=== PATIENT | female | born 1960 | race Caucasian/White ===

== ENCOUNTER 2023-07-06 07:51 | Outpatient (OUT) | payer OTHER, SELFPAY ==
--- NOTE | 2023-07-06 07:56 | MM_ITS ---
Patient Name: MIGUEL ANGEL LOZA MR#: [id number] : 1960 Exam Date: 07/06/2023 Ordering Doctor: DR LESLY MOORE . RADIOLOGY REPORT PROCEDURE: MM TOMOSYNTHESIS SCREENING BI COMPARISON: MG MAMM SCREEN 3D RICARDO CAD, 07/02/2022. MG MAMM SCREEN 3D RICARDO CAD, 05/21/2021. INDICATIONS: Screening Calculator Name NCI Breast Cancer Risk Assessment Tool 5 Year Breast Cancer Risk 4.10% Lifetime Breast Cancer Risk 19.60% Personal Breast Cancer No Personal Ovarian Cancer No Treatments Excision of tumor Family Cancers Sister with breast cancer at age 49; Aunt-maternal with breast cancer at age 55; Aunt-maternal with breast cancer at age 54; Mother with rectal cancer at age 68; Brother with skin cancer at age 52; Father with primary unknown. cancer at age 80. LOCATION: [facility] BREAST COMPOSITION: Heterogeneously dense,which may obscure small masses. FINDINGS: DIAGNOSTIC CATEGORY 2--BENIGN FINDING. NO CHANGE FROM COMPARISON. Scattered benign-appearing calcifications are present. Scattered benign-appearing lymph nodes are present. RIGHT BREAST: No significant suspicious finding. LEFT BREAST: No significant suspicious finding. Three stable micro clip markers RECOMMENDATIONS: ROUTINE MAMMOGRAM AND CLINICAL EVALUATION IN 12 MONTHS. PLEASE NOTE: A NORMAL MAMMOGRAM DOES NOT EXCLUDE THE POSSIBILITY OF BREAST CANCER. A CLINICALLY SUSPICIOUS PALPABLE LUMP SHOULD BE BIOPSIED. Dictated by: Kristopher Quiroz MD on 07/06/2023 at 11:27 Approved by: Kristopher Quiroz MD on 07/06/2023 at 11:29
== END 2023-07-06 07:52 | disposition home or self-care (01) ==
LOC: MAMMO 07:52
PROVIDERS: PCP Family Medicine; Visit Provider Family Medicine
DX: Z12.31 Encounter for screening mammogram for malignant neoplasm of breast (principal); Z80.3 Family history of malignant neoplasm of breast; Z80.8 Family history of malignant neoplasm of other organs or systems
CPT/HCPCS: 77063; 77067

== ENCOUNTER 2024-07-12 09:19 | Outpatient (OUT) | payer OTHER, SELFPAY ==
--- NOTE | 2024-07-12 09:21 | MM_ITS ---
Patient Name: MIGUEL ANGEL LOZA MR#: [id number] : 1960 Exam Date: 07/12/2024 Ordering Doctor: DR LESLY MOORE . RADIOLOGY REPORT PROCEDURE: MM TOMOSYNTHESIS SCREENING BI COMPARISON: MM TOMOSYNTHESIS SCREENING BI, 07/06/2023. MG MAMM SCREEN 3D RICARDO CAD, 07/02/2022. MG MAMM SCREEN 3D RICARDO CAD, 05/21/2021. MG MAMM RICARDO DIAG W CAD DIG, 02/14/2013. INDICATIONS: Screening Calculator Name NCI Breast Cancer Risk Assessment Tool 5 Year Breast Cancer Risk 4.20% Lifetime Breast Cancer Risk 19.10% Personal Breast Cancer No Personal Ovarian Cancer No Treatments Excision of tumor Family Cancers Sister with breast cancer at age 49; Aunt-maternal with breast cancer at age 55; Aunt-maternal with breast cancer at age 54; Mother with rectal cancer at age 68; Brother with skin cancer at age 52; Father with primary unknown. cancer at age 80. LOCATION: [facility] BREAST COMPOSITION: The breasts are heterogeneously dense,which may obscure small masses. FINDINGS: DIAGNOSTIC CATEGORY 2--BENIGN FINDING: RIGHT BREAST: No significant suspicious finding. Scattered benign-appearing calcifications are present. No significant change has occurred. LEFT BREAST: No significant suspicious finding. Scattered benign-appearing calcifications are present. Scattered benign-appearing lymph nodes are present. No significant change has occurred. Stable biopsy marker clips. RECOMMENDATIONS: ROUTINE MAMMOGRAM AND CLINICAL EVALUATION IN 12 MONTHS. PLEASE NOTE: A NORMAL MAMMOGRAM DOES NOT EXCLUDE THE POSSIBILITY OF BREAST CANCER. A CLINICALLY SUSPICIOUS PALPABLE LUMP SHOULD BE BIOPSIED. Dictated by: Tim Preston M.D. on 07/12/2024 at 11:45 Approved by: Tim Preston M.D. on 07/12/2024 at 11:53
--- OUTSIDE RECORDS SUMMARY | 2024-07-12 09:24 | XMS_ITS | CCD ---
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 testing on a fasting specimen if clinically indicated. Ольга et al. J. of Clin. Lipidol. 2015;9:129-169. Performed By: #### 7 600 #### [facility] [address], [address] [place] [address] Ragman: Osmar Martins MD #### [id number] #### [facility] [address] [place] [phone] Ragman: Sunita Sandoval 11-22-2023 JESSICA Office Visit (PAINLN) MARA LOZA ([id number]) 1960 F Date Time Provider Department 11/22/23 11:00 AM MARISSA SIMON CLARISSA PAINLN During your visit today, we recorded the following information about you: Pulse Weight Height 64/minute 85.3 kg 1.6 m Marissa Simon Clarissa, CORPORATE FINANCIAL ANALYST.AUTOMOBILE TESTER 11/22/2023 11:20 AM Signed Ms. Loza a 63 year old female returns today for follow up of post procedure, she states that symptoms have improved. PAIN: Pain Yes. Location: LB, rates pain a 1 on right side on a pain scale of 1-10. Patient describes pain as aching, duration to the present time occuring daily x 1. MEDICATIONS: Medications reviewed and verified. Current Outpatient Medications Medication Sig DULoxetine (CYMBALTA) 20 mg capsule Take 1 capsule by mouth once daily. diclofenac (VOLTAREN) 1 % topical gel Apply 2 g to affected area four times daily. nabumetone (RELAFEN) 750 mg tablet Take 750 mg by mouth twice daily. losartan (COZAAR) 100 mg tablet Take 100 mg by mouth once daily. estradiol (AUBRIE, VIVELLE-DOT) 0.05 mg/24 hr Apply 1 Patch as directed once each week. famotidine (PEPCID) 40 mg tablet Take 40 mg by mouth once daily. metoprolol succinate XL, long acting, 50 mg 24 hr tablet Take 25 mg by mouth once daily. FLUOCINOLONE ACETONIDE (FLUOCINOLONE TOPICAL) Apply to affected area as needed. No current facility-administere d medications for this visit. Patient feels that medications have helped a little PREVIOUS TREATMENTS LASTING SIX WEEKS IN THE LAST SIX MONTHS Active conservative therapy lasting 6 weeks in the last six months (see below) 1. Physical therapy: 2. Home exercise program after PT: No 3. Occupational therapy: No 4. A physician supervised home exercise program (HEP): No 5. Pantograph Setter: Yes Passive conservative therapy lasting 6 weeks in the last six months (see below) 1. Medical devises: No 2. Acupuncture: No 3. Tens unit: No 4. Prescription pain medication: No 5. NSAIDS: TREATMENTS: L5-S1 Interlaminar epidural steroid injection under fluoroscopic guidance. On 09/07/2023 Injection did not help at all. 50% relief for only 2 days. BILATERAL L4-L5 and L5-S1 facet medial branch nerve radiofrequency ablation # 1 10/19/2023 10/19/2023 100% left side 90% on the right Pantograph Setter Dr Jorje Rodriges 11/23/2023 adjustment EXAM: Pulse 64 Ht 160 cm (5' 3 ) Wt 85.3 kg (188 lb) SpO2 99% BMI 33.30 kg/m? No acute distress noted, patient alert and oriented X's 3. Resistive testing proximal and distal in the upper and the lower extremeties show 5/5 strength. DTR's are symmetrical in the upper and the lower extremeties. Nerve root tension signs: Negative. Heart: RRR Lungs: Clear Abdomen: Soft, non tender Spine: tenderness with palpation of lumbar spine IMPRESSION: Some element copied from my note on 10/06/2023, which have been updated where appropriate, and all reflect my current medical decision making from today. This is a 62 year old female with history of chronic low back and hip pain in the setting of lumbar spondylosis, lumbar facet arthropathy, lumbar disc herniation. Since last office visit she has undergone the following procedures: 09/07/2022 LESI L5-S1 10/19/2023 BILATERAL L4-L5 and L5-S1 facet medial branch nerve radiofrequency ablation # 1 under fluoroscopic guidance. Pre pain procedure: 02/24 Post pain procedure: 07/27 She reports this injection has offered her 90% pain relief of her axial low back. Functional Improvement: She has been able to increase her physical activity. She has been able to do things like play pickle ball and ride her bike. 2023 PROMIS CAT Pain Interference PROMIS Adult Short Form-Global Health Score (Mental) 62.5 (Excellent) 10/02/2023 PROMIS CAT Pain Interference PROMIS Pain Interference T-Score (range: 10 - 90) 66 (moderate) PROMIS Pain Interference Percentile 5 She reports having worsening axial low back pain she has some aching pain on her right side. She denies any red flag symptoms including weight loss, fevers, chills, night time awakening of pain, bowel bladder incontinence, saddle anesthesia, progressive numbness or weakness. We discussed that if these symptoms should arise she should seek emergency treatment. She has had MRI of lumbar spine that was revealing for Small shallow right central and subarticular disc protrusion at L4-5 mildly impinging on the right L5 nerve root sleeve. Mild left L5-S1 bony foraminal stenosis and epidural lipomatosis causing severe narrowing of the distal thecal sac. 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 These images were reviewed with the patient today in office She has continued rehab care assistant with Dr. Jorje Rodriges in [facility] every 2 weeks for the last several months. She also has continued to use voltaren gel, tylenol and heat. She trial Cymbalta and w (more content not included)... [facility] CNPNon 10-21-2023 CNPN Telephone (PAMAVN) MARA LOZA ([id number]) 1960 F Date Time Provider Department 10/21/23 LYNDSEY FINN During your visit today, we recorded the following information about you: Sybil Romo RN 10/21/2023 10:03 AM Signed DATE OF SERVICE: 10/19/23 PATIENT'S PHONE NUMBERS: [phone] (home) [phone] (work) PROVIDER: Dr. Finn PROCEDURE: BILATERAL L4-L5 and L5-S1 facet medial branch nerve radiofrequency ablation # 1 under fluoroscopic guidance. Pre 3 post 3 Spoke directly with patient/caregiver Patient states that they are 70% better. Patient states she can move around better Patient claims to have no problems. Mara Loza is status post Right and Left L4 and L5 facet medial branch nerve radiofrequency ablation. She did very well today without any apparent complications. She is to return to the clinic in 8-12 weeks for followup. Feels cymbalta gives her insomnia - suggested she take it in the AM. Postoperative instructions given, she voiced understanding. She was taken to the recovery room in stable condition. Appointment already scheduled 11/22/23 Allergies As of Date: 10/21/2023 Noted Allergy Reaction CEFUROXIME 07/22/2016 11 - Vomiting Comments: severe vomiting CIPROFLOXACIN 09/07/2013 2 - Rash PENICILLINS 09/07/2013 16 - Unknown Date Reviewed: 10/19/2023 Reviewed by: Katie Bernard RN - Fully Assessed Reason for Visit: post pain procedure [Other] Cmt: BILATERAL ?L4-L5 and L5-S1?facet medial branch nerve radiofrequency ablation # 1?under fluoroscopic guidance. Prescriptions as of 10/21/2023 - DULoxetine (CYMBALTA) 20 mg capsule Take 1 capsule by mouth once daily. - diclofenac (VOLTAREN) 1 % topical gel Apply 2 g to affected area four times daily. - nabumetone (RELAFEN) 750 mg tablet Take 750 mg by mouth twice daily. - losartan (COZAAR) 100 mg tablet Take 100 mg by mouth once daily. - estradiol (AUBRIE, VIVELLE-DOT) 0.05 mg/24 hr Apply 1 Patch as directed once each week. - famotidine (PEPCID) 40 mg tablet Take 40 mg by mouth once daily. - metoprolol succinate XL, long acting, 50 mg 24 hr tablet Take 25 mg by mouth once daily. - FLUOCINOLONE ACETONIDE (FLUOCINOLONE TOPICAL) Apply to affected area as needed. Problem List As Of Date 10/21/2023 Noted Resolved Palpitation [R00.2] 09/10/2013 Chest pain [R07.9] 09/10/2013 Sleep apnea [G47.30] 09/10/2013 Hypertension [I10] 12/03/2013 Syncope [R55] 02/04/2014 Sick sinus syndrome (HCC) [I49.5] 02/04/2014 Syncope and collapse [R55] 05/18/2016 Orthostatic lightheadedness [R42] 05/18/2016 Transient autonomic symptoms [R29.818] 05/18/2016 Paroxysmal spells (HCC) [VEU6262] 05/18/2016 Transient alteration of awareness [R40.4] 05/18/2016 05/26/2019 Concern about neurological disease without diag*05/18/2016 Lumbar degenerative disc disease [M51.36] 09/09/2020 Facet arthropathy, lumbosacral [M47.817] 09/09/2020 Lumbar spondylosis [M47.816] 09/09/2020 Radicular pain of left lower extremity [M54.10] 09/09/2020 Sacroiliitis (HCC) [M46.1] 09/09/2020 Leg length discrepancy [M21.70] 09/09/2020 Left hip pain [M25.552] 10/13/2020 Radiculopathy of lumbar region [M54.16] 11/24/2022 Lumbar disc herniation [M51.26] 11/24/2022 Encounter Status:Closed by SYBIL ROMO on 10/21/23 [facility] HISTORY PHYSICALon HISTORY PHYSICAL HNO ID: [id number] Author: MARISSA HIDALGO PA-C Service: ? Author Type: Physician Core Worker Type: H&P Filed: 10/19/2023 07:14 Note Text: PROCEDURAL SEDATION HISTORY AND PHYSICAL EXAM SERVICE DATE: 10/19/2023 SERVICE TIME: 7:13 AM Subjective HPI: This is a 62 year old female who presents with lower back pain PAST ANESTHESIA HISTORY: No history of adverse event PAST MEDICAL HISTORY Diagnosis Date Atypical pneumonia 11/2013 Mycoplasma Bladder cancer (HCC) 2010 HTN (hypertension) Kidney stones Sleep apnea 11/2013 On CPAP Syncope PAST SURGICAL HISTORY Procedure Laterality Date DELIVERY ONLY CHOLECYSTECTOMY HYSTERECTOMY HX LIG/TRNSXJ FLP TUBE ABDL/VAG APPR UNI/BI LITHOTRIPSY PROC UNILATERAL SLING OPER STRES INCONTINENCE Prior to Admission medications as of 10/19/23 0657 Medication Sig Last Dose Taking DULoxetine (CYMBALTA) 20 mg capsule Take 1 capsule by mouth once daily. 10/18/2023 Yes losartan (COZAAR) 100 mg tablet Take 100 mg by mouth once daily. 10/18/2023 Yes famotidine (PEPCID) 40 mg tablet Take 40 mg by mouth once daily. 10/18/2023 Yes metoprolol succinate XL, long acting, 50 mg 24 hr tablet Take 25 mg by mouth once daily. 10/18/2023 Yes diclofenac (VOLTAREN) 1 % topical gel Apply 2 g to affected area four times daily. Patient not taking: Reported on 10/06/2023 Unknown nabumetone (RELAFEN) 750 mg tablet Take 750 mg by mouth twice daily. estradiol (AUBRIE, VIVELLE-DOT) 0.05 mg/24 hr Apply 1 Patch as directed once each week. 10/16/2023 FLUOCINOLONE ACETONIDE (FLUOCINOLONE TOPICAL) Apply to affected area as needed. Unknown ALLERGIES Allergen Reactions Cefuroxime Vomiting severe vomiting Ciprofloxacin Rash Penicillins Unknown Objective PHYSICAL EXAM: The remainder of the physical exam is noncontributory. AIRWAY: Airway Visualization of Uvula: No (See Comment) (MP3) Mouth opening greater than 2 fingerbreadths: Yes Neck Full Range of Motion: Yes LUNGS: Lungs clear to auscultation, Good diaphragmatic excursion CARDIAC: Regular rhythm,Regular rate no murmurs Assessment/Plan ASA Class: ASA Class:: Patient with severe systemic disease Active Problems: Lumbar degenerative disc disease (POA: Yes) Assessment AND Plan: Lumbar degenerative disc disease Facet arthropathy, lumbosacral (POA: Yes) Assessment AND Plan: Facet arthropathy, lumbosacral Resolved Problems: * No resolved hospital problems. * Provisional Diagnosis/Treatment Plan: Lumbar degenerative disc disease and Facet arthropathy, lumbosacral/Procedur e(s) (LRB): DESTRUCTION BY NEUROLYTIC AGENT PARAVERTEBRAL FACET JOINT NERVE(S) W/ IMAGING GUIDANCE LUMBAR SINGLE FACET JOINT BILATERAL (Bilateral) DESTRUCTION BY NEUROLYTIC AGENT PARAVERTEBRAL FACET JOINT NERVE(S) W/ IMAGING GUIDANCE LUMBAR SACRAL 1ST ADD FACET JOINT (Bilateral) SIGNATURE: Marissa Hidalgo PA-C PATIENT NAME: Mara Loza DATE: October 19, 2023 TIME: 7:13 AM [facility] OPERATIVE NOon 10-19-2023 OPERATIVE NO HNO ID: [id number] Author: LYNDSEY FINN MD Service: Pain Management Author Type: Physician Type: Operative Report Filed: 10/19/2023 09:13 Note Text: Patient Name Medical Record # Mara Loza [id number] Date of : 1960 Admit Date: October 19, 2023 Sex / Age: female/62 year old Discharge Date: October 19, 2023 Date: October 19, 2023 Attending Physician: Lyndsey Finn MD Service: Pain Managment LOG ID: [id number] Surgery/Procedure Date: 10/19/2023 Incision/Procedure Start Time: 8:44 AM Incision Close/Procedure End Time: 9:06 AM PREOPERATIVE DIAGNOSIS: Lumbosacral Spondylosis without Myelopathy and Facet Syndrome POSTOPERATIVE DIAGNOSIS: Same. NAME OF OPERATION: BILATERAL L4-L5 and L5-S1 facet medial branch nerve radiofrequency ablation # 1 under fluoroscopic guidance. SURGEON: Lyndsey Finn MD BAR MACHINE OPERATOR MULTIPLE SPINDLE: None ANESTHESIA: Moderate sedation and local anesthesia using: Fentanyl 100 mcg IV and Versed 2 mg IV INFORMED CONSENT: Risks, benefits, and alternatives were discussed with the patient in detail. She verbalized understanding and agreed to proceed. PROCEDURE: The patient was brought to the fluoroscopy OR suite. Intravenous access was obtained prior to the procedure. The patient has positioned prone on the fluoroscopy table. Continuous hemodynamic monitoring was initiated including blood pressure, EKG and pulse oximetry. Intravenous sedation was administered incrementally to allow the patient to remain comfortable and conversant throughout the procedure.. The area of the lumbar spine was prepped with povidone iodine x3 and draped in a sterile field using sterile towels. Fluoroscopy was used to identify the location of the LEFT and RIGHT L4 and L5 medial branch nerves. Skin anesthesia was achieved using a total of 3 cc of lidocaine 1 % over respective injection sites. A 18-gauge, 100-mm in length with 10-mm active curved tip radiofrequency ablation needle was slowly inserted at each level using AP, Multiple Oblique and lateral fluoroscopic imaging for needle guidance. Final needle position was at the midpoint of the waist of the articular pillars. Negative aspiration for blood or CSF was confirmed. Sensory stimulation at 50 Hz below 0.65 volts was achieved at every level. Motor stimulation at 2 Hz up to 1.5 volts did not cause any radicular symptoms at any level. Each level was anesthetized using a total of 0.5 cc of Lidocaine 2% prior to radiofrequency lesioning. The Radiofrequency ablation was performed for 90 seconds at 80 degrees at each level. After radiofrequency lesioning, a total of 1 cc of bupivacaine 0.5% mixed with 5 mg of Triamcinolone was injected at each level, a total of 30 mg of Triamcinolone. [place] were then removed. Bleeding was nil. A sterile dressing was applied, and the patient was taken to the recovery room in stable condition. Complications: None. Estimated Blood Loss: None. Drains: None. Implantable Device: None. Specimen: None. I, Lyndsey Finn MD, performed the entire procedure. ASSESSMENT AND PLAN: Mara Loza is status post Right and Left L4 and L5 facet medial branch nerve radiofrequency ablation. She did very well today without any apparent complications. She is to return to the clinic in 8-12 weeks for followup. Feels cymbalta gives her insomnia - suggested she take it in the AM. Postoperative instructions given, she voiced understanding. She was taken to the recovery room in stable condition. Lyndsey Finn MD Pain Management October 19, 2023 [facility] 10-06-2023 [facility] Office Visit (PAINLN) MARA LOZA ([id number]) 1960 F Date Time Provider Department 10/06/23 10:30 AM MARISSA SIMON PAINLN During your visit today, we recorded the following information about you: Pulse 58/minute Marissa Simon, KEISHA.AUTOMOBILE TESTER 10/06/2023 12:30 PM Signed Ms. Loza a 62 year old female returns today for follow up of post injection, she states that symptoms are much worse. PAIN: Pain Yes. Location: low back, rates pain a 8 on a pain scale of 1-10. Patient describes pain as constant sharp and sometimes shooting down her legs to her knees, sometimes in her hips, duration to the present time occuring daily x 4. MEDICATIONS: Medications reviewed and verified. Current Outpatient Medications Medication Sig traMADol (ULTRAM) 50 mg tablet Take 1 tablet by mouth twice daily as needed for pain. diclofenac (VOLTAREN) 1 % topical gel Apply 2 g to affected area four times daily. nabumetone (RELAFEN) 750 mg tablet Take 750 mg by mouth twice daily. losartan (COZAAR) 100 mg tablet Take 100 mg by mouth once daily. estradiol (AUBRIE, VIVELLE-DOT) 0.05 mg/24 hr Apply 1 Patch as directed once each week. famotidine (PEPCID) 40 mg tablet Take 40 mg by mouth once daily. metoprolol succinate XL, long acting, 50 mg 24 hr tablet Take 25 mg by mouth once daily. FLUOCINOLONE ACETONIDE (FLUOCINOLONE TOPICAL) Apply to affected area as needed. No current facility-administere d medications for this visit. Patient feels that medications have not used PREVIOUS TREATMENTS LASTING SIX WEEKS IN THE LAST SIX MONTHS Active conservative therapy lasting 6 weeks in the last six months (see below) 1. Physical therapy: No 2. Home exercise program after PT: No 3. Occupational therapy: No 4. A physician supervised home exercise program (HEP): No 5. Pantograph Setter: No Passive conservative therapy lasting 6 weeks in the last six months (see below) 1. Medical devises: No 2. Acupuncture: No 3. Tens unit: No 4. Prescription pain medication: No 5. NSAIDS: No TREATMENTS: L5-S1 Interlaminar epidural steroid injection under fluoroscopic guidance. On 09/07/2023 Injection did not help at all. 50% relief for only 2 days. EXAM: Pulse (!) 58 SpO2 98% No acute distress noted, patient alert and oriented X's 3. Resistive testing proximal and distal in the upper and the lower extremeties show 5/5 strength. DTR's are symmetrical in the upper and the lower extremeties. Nerve root tension signs: Negative. Heart: RRR Lungs: Clear Abdomen: Soft, non tender Spine: tenderness with palpation of lumbar facets, reproducible pain with axial loading and extension IMPRESSION: Some element copied from my note on 08/18/2023, which have been updated where appropriate, and all reflect my current medical decision making from today. This is a 62 year old female with history of chronic low back and hip pain in the setting of lumbar spondylosis, lumbar facet arthropathy, lumbar disc herniation. Since last office visit she has undergone the following procedures: 09/07/2022 LESI L5-S1 Pre pain procedure: 02/24 Post pain procedure: 07/27 She reports this injection has offered her 80% pain relief of her radicular low back pain. She reports having worsening axial low back pain. Pain is worsened with axial loading and extension. She is unable to do things like vacuuming, and sitting. She denies any red flag symptoms including weight loss, fevers, chills, night time awakening of pain, bowel bladder incontinence, saddle anesthesia, progressive numbness or weakness. We discussed that if these symptoms should arise she should seek emergency treatment. She having some recurrent lower back pain. This pain does not radiate down the lateral aspect of her leg She has worsening of her pain with prolonged sitting like at basketball games. In the past she has undergone the following procedures: 12/23/2021 LEFT L4-L5 and L5-S1 facet medial branch nerve radiofrequency ablation # 1 under fluoroscopic guidance. Right L4-L5 and L5-S1 facet medial branch nerve radiofrequency ablation # 1 under fluoroscopic guidance Pre procedure pain score: 10 Post procedure pain score: 07/27 She had 85% pain relief of her axial low back pain for 1 1/2 years. She was able to increase her physical activity. 10/02/2023 PROMIS CAT Pain Interference PROMIS Pain Interference T-Score (range: 10 - 90) 66 (moderate) PROMIS Pain Interference Percentile 5 MRI of lumbar spine that was revealing for Small shallow right central and subarticular disc protrusion at L4-5 mildly impinging on the right L5 nerve root sleeve. Mild left L5-S1 bony foraminal stenosis and epidural lipomatosis causing severe narrowing of the distal thecal sac. 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 These images were reviewed with the patient today in office She h (more content not included)... [facility] CNPNon 10-06-2023 HUAN Telephone (IRINA) MARA LOZA ([id number]) 1960 F Date Time Provider Department 10/06/23 LYNDSEY FINN During your visit today, we recorded the following information about you: Altagracia Roberto 10/06/2023 3:24 PM Signed RFA Bilateral Lumbar L4-L5, L5-S1 MARA LOZA [id number] SILVINA FINN 10/18 -THINNER -DM Patient was made aware that the [facility] will call the day prior to scheduled procedure between the hours of 12 and 4 pm to advise patient of arrival time the day of procedure. Patient was advised that they will require a motor vehicle escort driver on the day of their procedure, and procedure will be cancelled if they arrive without a responsible adult to transport them home from the procedure. Patient advised that all medication management instructions prior to procedure will need addressed by clinical staff. Patient expresses understanding with no further questions or concerns at this time. Allergies As of Date: 10/06/2023 Noted Allergy Reaction CEFUROXIME 07/22/2016 11 - Vomiting Comments: severe vomiting CIPROFLOXACIN 09/07/2013 2 - Rash PENICILLINS 09/07/2013 16 - Unknown Date Reviewed: 10/06/2023 Reviewed by: Zeenat Molina MA - Fully Assessed Reason for Visit: Schedule Injection [3498] Primary Visit Diagnosis:Facet arthropathy, lumbosacral [M47.817] Other Visit Diagnoses:Lumbar degenerative disc disease [M51.36] Lumbar spondylosis [M47.816] Order(s):SURGICAL REQUEST - ELECTIVE (02/2020) [[id number]] Order #: [id number]: 1 Prescriptions as of 10/06/2023 - DULoxetine (CYMBALTA) 20 mg capsule Take 1 capsule by mouth once daily. - diclofenac (VOLTAREN) 1 % topical gel Apply 2 g to affected area four times daily. - nabumetone (RELAFEN) 750 mg tablet Take 750 mg by mouth twice daily. - losartan (COZAAR) 100 mg tablet Take 100 mg by mouth once daily. - estradiol (AUBRIE, VIVELLE-DOT) 0.05 mg/24 hr Apply 1 Patch as directed once each week. - famotidine (PEPCID) 40 mg tablet Take 40 mg by mouth once daily. - metoprolol succinate XL, long acting, 50 mg 24 hr tablet Take 25 mg by mouth once daily. - FLUOCINOLONE ACETONIDE (FLUOCINOLONE TOPICAL) Apply to affected area as needed. Problem List As Of Date 10/06/2023 Noted Resolved Palpitation [R00.2] 09/10/2013 Chest pain [R07.9] 09/10/2013 Sleep apnea [G47.30] 09/10/2013 Hypertension [I10] 12/03/2013 Syncope [R55] 02/04/2014 Sick sinus syndrome (HCC) [I49.5] 02/04/2014 Syncope and collapse [R55] 05/18/2016 Orthostatic lightheadedness [R42] 05/18/2016 Transient autonomic symptoms [R29.818] 05/18/2016 Paroxysmal spells (HCC) [[id number]] 05/18/2016 Transient alteration of awareness [R40.4] 05/18/2016 05/26/2019 Concern about neurological disease without diag*05/18/2016 Lumbar degenerative disc disease [M51.36] 09/09/2020 Facet arthropathy, lumbosacral [M47.817] 09/09/2020 Lumbar spondylosis [M47.816] 09/09/2020 Radicular pain of left lower extremity [M54.10] 09/09/2020 Sacroiliitis (HCC) [M46.1] 09/09/2020 Leg length discrepancy [M21.70] 09/09/2020 Left hip pain [M25.552] 10/13/2020 Radiculopathy of lumbar region [M54.16] 11/24/2022 Lumbar disc herniation [M51.26] 11/24/2022 Encounter Status:Closed by ALTAGRACIA ROBERTO on 10/06/23 [facility] Brian 09-08-2023 HUAN Telephone (PAINLN) MARA LOZA ([id number]) 1960 F Date Time Provider Department 09/08/23 RUKHSANA MILIAN During your visit today, we recorded the following information about you: Kori Tineo LPN 09/08/2023 2:05 PM Signed Called patient, verified name and , and asked % of pain relief and any functional improvement since L5-S1 Interlaminar epidural steroid injection under fluoroscopic guidance procedure with Dr Milian on 09/07/23. PrePain 5 PostPain 3 Patient states ?I have had 70 % of pain relief since my procedure on 09/07/23 and functional improvement in being able to walk and stand easier with less pain since the procedure.? Patient denies any problems or further questions at this time. Patient instructed to call Pain Management office if she has any further questions or concerns. She is to return to clinic in 12 weeks for follow up with Marissa Simon APRN,HUA. Please schedule appt. Jose Chavez 09/08/2023 2:52 PM Signed Spoke to patient and scheduled her with Marissa Simon for a follow up in 12 weeks. Jose Chavez September 08, 2023 2:51 PM Allergies As of Date: 09/08/2023 Noted Allergy Reaction CEFUROXIME 07/22/2016 11 - Vomiting Comments: severe vomiting CIPROFLOXACIN 09/07/2013 2 - Rash PENICILLINS 09/07/2013 16 - Unknown Date Reviewed: 09/07/2023 Reviewed by: Gerda Tovar RN - Fully Assessed Reason for Visit: Post Op [174] Prescriptions as of 09/08/2023 - traMADol (ULTRAM) 50 mg tablet Take 1 tablet by mouth twice daily as needed for pain. - diclofenac (VOLTAREN) 1 % topical gel Apply 2 g to affected area four times daily. - nabumetone (RELAFEN) 750 mg tablet Take 750 mg by mouth twice daily. - losartan (COZAAR) 100 mg tablet Take 100 mg by mouth once daily. - estradiol (AUBRIE, VIVELLE-DOT) 0.05 mg/24 hr Apply 1 Patch as directed once each week. - famotidine (PEPCID) 40 mg tablet Take 40 mg by mouth once daily. - metoprolol succinate XL, long acting, 50 mg 24 hr tablet Take 25 mg by mouth once daily. - FLUOCINOLONE ACETONIDE (FLUOCINOLONE TOPICAL) Apply to affected area as needed. Problem List As Of Date 09/08/2023 Noted Resolved Palpitation [R00.2] 09/10/2013 Chest pain [R07.9] 09/10/2013 Sleep apnea [G47.30] 09/10/2013 Hypertension [I10] 12/03/2013 Syncope [R55] 02/04/2014 Sick sinus syndrome (HCC) [I49.5] 02/04/2014 Syncope and collapse [R55] 05/18/2016 Orthostatic lightheadedness [R42] 05/18/2016 Transient autonomic symptoms [R29.818] 05/18/2016 Paroxysmal spells (HCC) [[id number]] 05/18/2016 Transient alteration of awareness [R40.4] 05/18/2016 05/26/2019 Concern about neurological disease without diag*05/18/2016 Lumbar degenerative disc disease [M51.36] 09/09/2020 Facet arthropathy, lumbosacral [M47.817] 09/09/2020 Lumbar spondylosis [M47.816] 09/09/2020 Radicular pain of left lower extremity [M54.10] 09/09/2020 Sacroiliitis (HCC) [M46.1] 09/09/2020 Leg length discrepancy [M21.70] 09/09/2020 Left hip pain [M25.552] 10/13/2020 Radiculopathy of lumbar region [M54.16] 11/24/2022 Lumbar disc herniation [M51.26] 11/24/2022 Encounter Status:Closed by JOSE CHAVEZ on 09/08/23 [facility] HISTORY PHYSICALon HISTORY PHYSICAL HNO ID: [id number] Author: TERESSA JUAN APRN.AUTOMOBILE TESTER Service: ? Author Type: Nurse Practitioner Type: H&P Filed: 09/07/2023 10:54 Note Text: PROCEDURAL SEDATION HISTORY AND PHYSICAL EXAM SERVICE DATE: 09/07/2023 SERVICE TIME: 10:52 AM Subjective HPI: This is a 62 year old female who presents with back pain PAST ANESTHESIA HISTORY: No history of adverse event PAST MEDICAL HISTORY Diagnosis Date Atypical pneumonia 11/2013 Mycoplasma Bladder cancer (HCC) 2010 HTN (hypertension) Kidney stones Sleep apnea 11/2013 On CPAP Syncope PAST SURGICAL HISTORY Procedure Laterality Date DELIVERY ONLY CHOLECYSTECTOMY HYSTERECTOMY HX LIG/TRNSXJ FLP TUBE ABDL/VAG APPR UNI/BI LITHOTRIPSY PROC UNILATERAL SLING OPER STRES INCONTINENCE Prior to Admission medications as of 01/27/23 1352 Medication Sig Last Dose Taking losartan (COZAAR) 100 mg tablet Take 100 mg by mouth once daily. 09/06/2023 Yes famotidine (PEPCID) 40 mg tablet Take 40 mg by mouth once daily. 09/06/2023 Yes metoprolol succinate XL, long acting, 50 mg 24 hr tablet Take 25 mg by mouth once daily. 09/06/2023 Yes traMADol (ULTRAM) 50 mg tablet Take 1 tablet by mouth twice daily as needed for pain. prn diclofenac (VOLTAREN) 1 % topical gel Apply 2 g to affected area four times daily. nabumetone (RELAFEN) 750 mg tablet Take 750 mg by mouth twice daily. estradiol (AUBRIE, VIVELLE-DOT) 0.05 mg/24 hr Apply 1 Patch as directed once each week. 09/05/2023 FLUOCINOLONE ACETONIDE (FLUOCINOLONE TOPICAL) Apply to affected area as needed. 09/05/2023 ALLERGIES Allergen Reactions Cefuroxime Vomiting severe vomiting Ciprofloxacin Rash Penicillins Unknown Objective PHYSICAL EXAM: The remainder of the physical exam is noncontributory. AIRWAY: Airway Visualization of Uvula: Yes Mouth opening greater than 2 fingerbreadths: Yes Neck Full Range of Motion: Yes LUNGS: Lungs clear to auscultation CARDIAC: Regular rhythm,Regular rate Assessment/Plan ASA Class: Active Problems: Lumbar radiculopathy [M54.16] Lumbar disc herniation [M51.26] Medication and Non-Pharmacologic VTE Prophylaxis/Anticoag ulants VTE Prophylaxis: N/A Provisional Diagnosis/Treatment Plan: LUMBAR EPIDURAL BLOCK W/INJECTION NON NEUROLYTIC W/IMAGE GUIDANCE SIGNATURE: Teressa Juan APRN.CNP PATIENT NAME: Mara Loza DATE: September 07, 2023 TIME: 10:52 AM [facility] NURSING PROGon 09-07-2023 NURSING PROG HNO ID: [id number] Author: GERDA TOVAR RN Service: ? Author Type: Registered Nurse Type: Nursing Progress Note Filed: 09/07/2023 11:26 Note Text: POST OP LEARNING RESPONSE INSTRUCTION PROVIDED TO: Patient METHOD OF INSTRUCTION: Written instruction - handouts Verbal instruction PATIENT / FAMILY RESPONSE: Verbalizes understanding of: INFECTION MANAGEMENT-Signs and symptoms of an infection and importance of contacting the physician PAIN MANAGEMENT-Effective strategies to manage pain in addition to pain medication PHYSICAL RESTRICTIONS-Physica l restrictions and recommendations after discharge from the hospital POST-PROCEDURE INSTRUCTIONS-Correct actions to take to reduce post procedure complications WORSENING CONDITION-Signs and symptoms of a worsening condition that warrant a call to the physician FOLLOW-UP PLAN: Patient instructed to call with any further issues SUPPLEMENTAL MATERIAL: Procedure discharge instructions REFERRAL (RECOMMENDATION): None Electronically Signed By: Gerda Tovar RN In Department: AMBULATORY SURGERY [facility] OPERATIVE NOon 09-07-2023 OPERATIVE NO HNO ID: [id number] Author: RUKHSANA MILIAN DO Service: Pain Management Author Type: Physician Type: Operative Report Filed: 09/07/2023 11:13 Note Text: Patient Name Medical Record # Mara Loza [id number] Date of : 1960 Admit Date: September 07, 2023 Sex / Age: female/62 year old Discharge Date: September 07, 2023 Date: September 07, 2023 Attending Physician: Rukhsana Milian DO Service: Pain Managment LOG ID: [id number] Surgery/Procedure Date: 09/07/2023 Incision/Procedure Start Time: 11:07 AM Incision Close/Procedure End Time: 11:12 AM PREOPERATIVE DIAGNOSIS: Lumbosacral radiculopathy and lumbar disc herniation POSTOPERATIVE DIAGNOSIS: Same NAME OF OPERATION: L5-S1 Interlaminar epidural steroid injection under fluoroscopic guidance. SURGEON: Rukhsana Milian DO BAR MACHINE OPERATOR MULTIPLE SPINDLE: Ilene De M.D, PGY5 ANESTHESIA: Local anesthesia INFORMED CONSENT: Risks, benefits and alternatives were discussed with the patient in detail. She verbalized understanding and agreed to proceed. PROCEDURE: The patient was brought to fluoroscopy OR suite. Intravenous access was not obtained prior to the procedure. The patient was positioned prone on the fluoroscopy table. Continuous hemodynamic monitoring was initiated including blood pressure, EKG and pulse oximetry. Intravenous sedation was not administered. The area of the lumbosacral spine was prepped well with povidone-iodine x 3 and draped into a sterile field. Skin anesthesia was achieved using total of 3 cc of lidocaine 1 % over receptive injection site. An 18 gauge 3.5 inch Tuohy needle was slowly inserted and advanced using [id number] technique to air with AP and Lateral fluoroscopic imaging for needle guidance. Negative aspiration for blood and CSF was confirmed. Epidural contrast spread was confirmed using 2 mL of Omnipaque contrast Absence of vascular uptake was confirmed as well. A total of 5 cc of lidocaine 0.5% mixed with 40 mg of Triamcinolone was injected. Needle was then removed and bleeding was nil. Sterile dressing was applied and the patient was brought to the Recovery Room in stable condition. Complications: None. Estimated Blood Loss: None. Drains: None. Implantable Device: None. Specimen: None. I was present during the entire procedure, assisted as needed, patient tolerated well and no apparant complications, plan as outlined. Rukhsana Milian DO ASSESSMENT AND PLAN: Mara Loza is status post L5-S1 interlaminar epidural steroid injection. She did very well without any apparent complications. She is to return to clinic in 12 weeks for follow up. Postoperative instructions were given. She voiced understanding, and she was taken to the recovery room in stable condition. Rukhsana Milian DO Pain Management September 07, 2023 [facility] CNOVon 08-18-2023 CNOV Office Visit (PAINLN) DAGOMARA Tapia ([id number]) 1960 F Date Time Provider Department 08/18/23 11:30 AM MARISSA SIMON PAINLN During your visit today, we recorded the following information about you: Pulse Height 60/minute 1.6 m Marissa Simon, CORPORATE FINANCIAL ANALYST.AUTOMOBILE TESTER 08/18/2023 11:56 AM Signed Ms. Loza a 62 year old female returns today for follow up of re=eval, she states that symptoms have not changed. PAIN: Pain Yes. Location: low back and sometimes BLE, rates pain a 3 on a pain scale of 1-10. Patient describes pain as aching and soreness, duration to the present time occuring daily more when sitting. MEDICATIONS: Medications reviewed and verified. Current Outpatient Medications Medication Sig nabumetone (RELAFEN) 750 mg tablet Take 750 mg by mouth twice daily. losartan (COZAAR) 100 mg tablet Take 100 mg by mouth once daily. famotidine (PEPCID) 40 mg tablet Take 40 mg by mouth once daily. metoprolol succinate XL, long acting, 50 mg 24 hr tablet Take 25 mg by mouth once daily. FLUOCINOLONE ACETONIDE (FLUOCINOLONE TOPICAL) Apply to affected area as needed. traMADol (ULTRAM) 50 mg tablet Take 1 tablet by mouth twice daily as needed for pain. diclofenac (VOLTAREN) 1 % topical gel Apply 2 g to affected area four times daily. estradiol (AUBRIE, VIVELLE-DOT) 0.05 mg/24 hr Apply 1 Patch as directed once each week. No current facility-administere d medications for this visit. Patient feels that medications have not used PREVIOUS TREATMENTS LASTING SIX WEEKS IN THE LAST SIX MONTHS Active conservative therapy lasting 6 weeks in the last six months (see below) 1. Physical therapy: No 2. Home exercise program after PT: No 3. Occupational therapy: No 4. A physician supervised home exercise program (HEP): No 5. Pantograph Setter: yes Passive conservative therapy lasting 6 weeks in the last six months (see below) 1. Medical devises: No 2. Acupuncture: No 3. Tens unit: No 4. Prescription pain medication: Yes 5. NSAIDS: No TREATMENTS: Pantograph Setter- gives relief EXAM: Pulse 60 Ht 160 cm (5' 3 ) SpO2 98% BMI 37.02 kg/m? No acute distress noted, patient alert and oriented X's 3. Resistive testing proximal and distal in the upper and the lower extremeties show 5/5 strength. DTR's are symmetrical in the upper and the lower extremeties. Nerve root tension signs: Negative. Heart: RRR Lungs: Clear Abdomen: Soft, non tender Spine: tenderness with palpation of lumbar spine IMPRESSION: Some element copied from my note on 01/27/2023, which have been updated where appropriate, and all reflect my current medical decision making from today. This is a 62 year old female with history of chronic low back and hip pain in the setting of lumbar spondylosis, lumbar facet arthropathy, lumbar disc herniation. She comes to office today accompanied by her . Since last office visit she has undergone the following procedures: 11/24/2022 LESI L5-S1 Pre pain procedure: 02/24 Post pain procedure: 1/10 She reports 90% pain for the last 6 months. Functional Improvement: Was able to increase her activity. Was able to exercise and was able to do things like play pickle ball. She having some recurrent lower back pain. This pain does not radiate down the lateral aspect of her leg She has worsening of her pain with prolonged sitting like at basketball games. She denies any red flag symptoms including weight loss, fevers, chills, night time awakening of pain, bowel bladder incontinence, saddle anesthesia, progressive numbness or weakness. We discussed that if these symptoms should arise she should seek emergency treatment. MRI of lumbar spine that was revealing for Small shallow right central and subarticular disc protrusion at L4-5 mildly impinging on the right L5 nerve root sleeve. Mild left L5-S1 bony foraminal stenosis and epidural lipomatosis causing severe narrowing of the distal thecal sac. 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 These images were reviewed with the patient today in office She has continued rehab care assistant with Dr. Jorje Rodriges in [facility] every 2 weeks for the last several months. She also has continued to use voltaren gel, tylenol and heat. I spent a total of 30 minutes on the date of the service which included preparing to see the patient, [id number] patient care, completing clinical documentation, obtaining and/or reviewing separately obtained history, performing a medically appropriate examination, counseling and educating the patient/family/careg iver, and ordering medications, tests, or procedures. PLAN: Repeat LESI L5-S1 Reviewed red flag symptoms to watch for RTC following injection Marissa Simon APRN.AUTOMOBILE TESTER August 18, 2023 Allergies As of Date: 08/18/2023 Noted Allergy Reaction CEFUROXIME 07/22/2016 11 - Vomiting Comments: severe vomiting CIPRO (more content not included)... [facility] HUANon 08-18-2023 ROSALIND Telephone (ORLORA) MARA LOZA ([id number]) 1960 F Date Time Provider Department 08/18/23 LYNDSEY FINN During your visit today, we recorded the following information about you: Altagracia Roberto 08/18/2023 4:48 PM Signed LESI L5-S1 MARA LOZA [id number] [facility] 09/07 -[facility] -DM Patient was made aware that the [facility] will call the day prior to scheduled procedure between the hours of 12 and 4 pm to advise patient of arrival time the day of procedure. Patient was advised that they will require a motor vehicle escort driver on the day of their procedure, and procedure will be cancelled if they arrive without a responsible adult to transport them home from the procedure. Patient advised that all medication management instructions prior to procedure will need addressed by clinical staff. Patient expresses understanding with no further questions or concerns at this time. Allergies As of Date: 08/18/2023 Noted Allergy Reaction CEFUROXIME 07/22/2016 11 - Vomiting Comments: severe vomiting CIPROFLOXACIN 09/07/2013 2 - Rash PENICILLINS 09/07/2013 16 - Unknown Date Reviewed: 08/18/2023 Reviewed by: Pushpa Campa MA - Fully Assessed Reason for Visit: Schedule Injection [3498] Primary Visit Diagnosis:Lumbar radiculopathy [M54.16] Other Visit Diagnosis:Lumbar disc herniation [M51.26] Order(s):SURGICAL REQUEST - ELECTIVE (02/2020) [[id number]] Order #: [id number]: 1 Prescriptions as of 08/18/2023 - traMADol (ULTRAM) 50 mg tablet Take 1 tablet by mouth twice daily as needed for pain. - diclofenac (VOLTAREN) 1 % topical gel Apply 2 g to affected area four times daily. - nabumetone (RELAFEN) 750 mg tablet Take 750 mg by mouth twice daily. - losartan (COZAAR) 100 mg tablet Take 100 mg by mouth once daily. - estradiol (AUBRIE, VIVELLE-DOT) 0.05 mg/24 hr Apply 1 Patch as directed once each week. - famotidine (PEPCID) 40 mg tablet Take 40 mg by mouth once daily. - metoprolol succinate XL, long acting, 50 mg 24 hr tablet Take 25 mg by mouth once daily. - FLUOCINOLONE ACETONIDE (FLUOCINOLONE TOPICAL) Apply to affected area as needed. Problem List As Of Date 08/18/2023 Noted Resolved Palpitation [R00.2] 09/10/2013 Chest pain [R07.9] 09/10/2013 Sleep apnea [G47.30] 09/10/2013 Hypertension [I10] 12/03/2013 Syncope [R55] 02/04/2014 Sick sinus syndrome (HCC) [I49.5] 02/04/2014 Syncope and collapse [R55] 05/18/2016 Orthostatic lightheadedness [R42] 05/18/2016 Transient autonomic symptoms [R29.818] 05/18/2016 Paroxysmal spells (HCC) [[id number]] 05/18/2016 Transient alteration of awareness [R40.4] 05/18/2016 05/26/2019 Concern about neurological disease without diag*05/18/2016 Lumbar degenerative disc disease [M51.36] 09/09/2020 Facet arthropathy, lumbosacral [M47.817] 09/09/2020 Lumbar spondylosis [M47.816] 09/09/2020 Radicular pain of left lower extremity [M54.10] 09/09/2020 Sacroiliitis (HCC) [M46.1] 09/09/2020 Leg length discrepancy [M21.70] 09/09/2020 Left hip pain [M25.552] 10/13/2020 Radiculopathy of lumbar region [M54.16] 11/24/2022 Lumbar disc herniation [M51.26] 11/24/2022 Encounter Status:Closed by ALTAGRACIA ROBERTO on 08/18/23 [facility] CNOVon 01-27-2023 CNOV Office Visit (PAINLN) MARA LOZA ([id number]) 1960 F Date Time Provider Department 01/27/23 2:00 PM MARISSA SIMON PAINLN During your visit today, we recorded the following information about you: Pulse 78/minute Marissa Simon APRN.AUTOMOBILE TESTER 01/27/2023 2:37 PM Signed Ms. Loza a 62 year old female returns today for follow up of post injection, she states that symptoms have improved. PAIN: Pain Yes. Location: LB, rates pain a 1 on a pain scale of 1-10. Patient describes pain as dull ache, duration to the present time occuring daily x 4. MEDICATIONS: Medications reviewed and verified. Current Outpatient Medications Medication Sig traMADol (ULTRAM) 50 mg tablet Take 1 tablet by mouth twice daily as needed for pain. diclofenac (VOLTAREN) 1 % topical gel Apply 2 g to affected area four times daily. nabumetone (RELAFEN) 750 mg tablet Take 750 mg by mouth twice daily. losartan (COZAAR) 100 mg tablet Take 100 mg by mouth once daily. estradiol (AUBRIE, VIVELLE-DOT) 0.05 mg/24 hr Apply 1 Patch as directed once each week. famotidine (PEPCID) 40 mg tablet Take 40 mg by mouth once daily. metoprolol succinate XL, long acting, 50 mg 24 hr tablet Take 25 mg by mouth once daily. FLUOCINOLONE ACETONIDE (FLUOCINOLONE TOPICAL) Apply to affected area as needed. No current facility-administere d medications for this visit. Patient feels that medications have helped a little PREVIOUS TREATMENTS LASTING SIX WEEKS IN THE LAST SIX MONTHS Active conservative therapy lasting 6 weeks in the last six months (see below) 1. Physical therapy: No 2. Home exercise program after PT: No 3. Occupational therapy: No 4. A physician supervised home exercise program (HEP): No 5. Pantograph Setter: No Passive conservative therapy lasting 6 weeks in the last six months (see below) 1. Medical devises: No 2. Acupuncture: No 3. Tens unit: No 4. Prescription pain medication: No 5. NSAIDS: No TREATMENTS: L5-S1 Interlaminar epidural steroid injection under fluoroscopic guidance. On 11/24/2022 EXAM: Pulse 78 SpO2 98% No acute distress noted, patient alert and oriented X's 3. Resistive testing proximal and distal in the upper and the lower extremeties show 5/5 strength. DTR's are symmetrical in the upper and the lower extremeties. Nerve root tension signs: Negative. Heart: RRR Lungs: Clear Abdomen: Soft, non tender Spine: no tenderness with palpation of lumbar spine IMPRESSION: Some element copied from my note on 11/24/2022, which have been updated where appropriate, and all reflect my current medical decision making from today. This is a 62 year old female with history of chronic low back and hip pain in the setting of lumbar spondylosis, lumbar facet arthropathy. She comes to office today accompanied by her . Since last office visit she has undergone the following procedures: 11/24/2022 LESI L5-S1 She reports having 100% pain relief from this injection for the first 4-6 weeks. She reports having 80% pain relief at this time. She reports she has been able to walk and increase her physical activity. She was able to take her trip to [place] and was able to be active during this trip. She continues to have right sided lower back pain. This pain does not radiate down the lateral aspect of her leg. She has some slight pain today in office. She was able to undergo a massage which she reports helped with her pain. She denies any red flag symptoms including weight loss, fevers, chills, night time awakening of pain, bowel bladder incontinence, saddle anesthesia, progressive numbness or weakness. We discussed that if these symptoms should arise she should seek emergency treatment. MRI of lumbar spine that was revealing for Small shallow right central and subarticular disc protrusion at L4-5 mildly impinging on the right L5 nerve root sleeve. Mild left L5-S1 bony foraminal stenosis and epidural lipomatosis causing severe narrowing of the distal thecal sac. 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 These images were reviewed with the patient today in office She has continued rehab care assistant with Dr. Jorje Rodriges in [facility] every 2 weeks for the last several months. She also has continued to use voltaren gel, tylenol and heat. I spent a total of 30 minutes on the date of the service which included preparing to see the patient, [id number] patient care, completing clinical documentation, obtaining and/or reviewing separately obtained history, performing a medically appropriate examination, counseling and educating the patient/family/careg iver, and ordering medications, tests, or procedures. 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 [facility] (PAINLN) MARA OLZA ([id number]) 1960 F Date Time Provider Department 11/25/22 RUKHSANA MILIANLN During your visit today, we recorded the following information about you: Benny Lombardo LPN 11/25/2022 10:02 AM Signed Called patient, verified name and , and asked % of pain relief and any functional improvement L5-S1 Interlaminar epidural steroid injection under fluoroscopic guidance with Dr Milian on 11/24/22. PrePain 10 PostPain 2 Patient states ?I have had 80 % of pain relief since my procedure and functional improvement in being able to walk easier with less pain since the procedure.? Patient denies any problems or further questions at this time. Patient instructed to call Pain Management office if she has any further questions or concerns. Allergies As of Date: 11/25/2022 Noted Allergy Reaction CEFUROXIME 07/22/2016 11 - Vomiting Comments: severe vomiting CIPROFLOXACIN 09/07/2013 2 - Rash PENICILLINS 09/07/2013 16 - Unknown Date Reviewed: 11/24/2022 Reviewed by: Irma Rosenberg RN - Fully Assessed Reason for Visit: Post Op [174] Prescriptions as of 11/25/2022 - traMADol (ULTRAM) 50 mg tablet Take 1 tablet by mouth twice daily as needed for pain. - diclofenac (VOLTAREN) 1 % topical gel Apply 2 g to affected area four times daily. - nabumetone (RELAFEN) 750 mg tablet Take 750 mg by mouth twice daily. - losartan (COZAAR) 100 mg tablet Take 100 mg by mouth once daily. - estradiol (AUBRIE, VIVELLE-DOT) 0.05 mg/24 hr Apply 1 Patch as directed once each week. - famotidine (PEPCID) 40 mg tablet Take 40 mg by mouth once daily. - metoprolol succinate XL, long acting, 50 mg 24 hr tablet Take 25 mg by mouth once daily. - FLUOCINOLONE ACETONIDE (FLUOCINOLONE TOPICAL) Apply to affected area as needed. Problem List As Of Date 11/25/2022 Noted Resolved Palpitation [R00.2] 09/10/2013 Chest pain [R07.9] 09/10/2013 Sleep apnea [G47.30] 09/10/2013 Hypertension [I10] 12/03/2013 Syncope [R55] 02/04/2014 Sick sinus syndrome (HCC) [I49.5] 02/04/2014 Syncope and collapse [R55] 05/18/2016 Orthostatic lightheadedness [R42] 05/18/2016 Transient autonomic symptoms [R29.818] 05/18/2016 Paroxysmal spells (HCC) [PCY4655] 05/18/2016 Transient alteration of awareness [R40.4] 05/18/2016 05/26/2019 Concern about neurological disease without diag*05/18/2016 Lumbar degenerative disc disease [M51.36] 09/09/2020 Facet arthropathy, lumbosacral [M47.817] 09/09/2020 Lumbar spondylosis [M47.816] 09/09/2020 Radicular pain of left lower extremity [M54.10] 09/09/2020 Sacroiliitis (HCC) [M46.1] 09/09/2020 Leg length discrepancy [M21.70] 09/09/2020 Left hip pain [M25.552] 10/13/2020 Radiculopathy of lumbar region [M54.16] 11/24/2022 Lumbar disc herniation [M51.26] 11/24/2022 Encounter Status:Closed by BENNY LOMBARDO on 11/25/22 [facility] HISTORY PHYSICALon HISTORY PHYSICAL HNO ID: [id number] Author: Teressa Juan APRN.AUTOMOBILE TESTER Service: ? Author Type: Nurse Practitioner Type: HANDP Filed: 11/24/2022 12:15 PM Note Text: PROCEDURAL SEDATION HISTORY AND PHYSICAL EXAM SERVICE DATE: 11/24/2022 SERVICE TIME: 12:13 PM Subjective HPI: This is a 62 year old female who presents with Back pain PAST ANESTHESIA HISTORY: No history of adverse event PAST MEDICAL HISTORY Diagnosis Date Atypical pneumonia 11/2013 Mycoplasma Bladder cancer (HCC) 2010 HTN (hypertension) Kidney stones Sleep apnea 11/2013 On CPAP Syncope PAST SURGICAL HISTORY Procedure Laterality Date DELIVERY ONLY CHOLECYSTECTOMY HYSTERECTOMY HX LIG/TRNSXJ FLP TUBE ABDL/VAG APPR UNI/BI LITHOTRIPSY PROC UNILATERAL SLING OPER STRES INCONTINENCE Prior to Admission medications as of 11/24/22 1203 Medication Sig Last Dose Taking traMADol (ULTRAM) 50 mg tablet Take 1 tablet by mouth twice daily as needed for pain. 11/24/2022 Yes losartan (COZAAR) 100 mg tablet Take 100 mg by mouth once daily. 11/23/2022 Yes famotidine (PEPCID) 40 mg tablet Take 40 mg by mouth once daily. 11/23/2022 Yes metoprolol succinate XL, long acting, 50 mg 24 hr tablet Take 25 mg by mouth once daily. 11/23/2022 Yes diclofenac (VOLTAREN) 1 % topical gel Apply 2 g to affected area four times daily. nabumetone (RELAFEN) 750 mg tablet Take 750 mg by mouth twice daily. estradiol (AUBRIE, VIVELLE-DOT) 0.05 mg/24 hr Apply 1 Patch as directed once each week. FLUOCINOLONE ACETONIDE (FLUOCINOLONE TOPICAL) Apply to affected area as needed. ALLERGIES Allergen Reactions Cefuroxime Vomiting severe vomiting Ciprofloxacin Rash Penicillins Unknown Objective PHYSICAL EXAM: The remainder of the physical exam is noncontributory. GENERAL: Alert, no distress, cooperative AIRWAY: Airway Visualization of Uvula: Yes Mouth opening greater than 2 fingerbreadths: Yes Neck Full Range of Motion: Yes LUNGS: Lungs clear to auscultation CARDIAC: Regular rhythm,Regular rate Assessment/Plan ASA Class: ASA Class:: Patient with severe systemic disease Radiculopathy of lumbar region [M54.16] Lumbar disc herniation [M51.26] Discogenic lumbar pain [M54.59] Right foot drop [M21.371] Medication and Non-Pharmacologic VTE Prophylaxis/Anticoag ulants VTE Prophylaxis: N/A Provisional Diagnosis/Treatment Plan: INJECTION(S) STEROID TRANSFORAMINAL EPIDURAL W/ IMAGING GUIDANCE LUMBAR - Right SIGNATURE: Teressa Juan APRN.CNP PATIENT NAME: Mara Loza DATE: November 24, 2022 TIME: 12:13 PM [facility] OPERATIVE NOon 11-24-2022 OPERATIVE NO HNO ID: [id number] Author: Rukshana Milian DO Service: Pain Management Author Type: Physician Type: Operative Report Filed: 11/24/2022 12:43 PM Note Text: Patient Name Medical Record # Mara Loza [id number] Date of : 1960 Admit Date: November 24, 2022 Sex / Age: female/62 year old Discharge Date: November 24, 2022 Date: November 24, 2022 Attending Physician: Rukhsana Milian DO Service: Pain Managment LOG ID: [id number] Surgery/Procedure Date: 11/24/2022 Incision/Procedure Start Time: 12:39 PM Incision Close/Procedure End Time: 12:41 PM PREOPERATIVE DIAGNOSIS: Lumbosacral radiculopathy and lumbar disc herniation POSTOPERATIVE DIAGNOSIS: Same NAME OF OPERATION: L5-S1 Interlaminar epidural steroid injection under fluoroscopic guidance. SURGEON: Rukhsana Milian DO BAR MACHINE OPERATOR MULTIPLE SPINDLE: None. ANESTHESIA: Moderate sedation and local anesthesia using: Versed 2 mg IV INFORMED CONSENT: Risks, benefits and alternatives were discussed with the patient in detail. She verbalized understanding and agreed to proceed. PROCEDURE: The patient was brought to fluoroscopy OR suite. Intravenous access was obtained prior to the procedure. The patient was positioned prone on the fluoroscopy table. Continuous hemodynamic monitoring was initiated including blood pressure, EKG and pulse oximetry. Intravenous sedation was administered incrementally to allow the patient to remain comfortable and conversant throughout the procedure. The area of the lumbosacral spine was prepped well with povidone-iodine x 3 and draped into a sterile field. Skin anesthesia was achieved using total of 3 cc of lidocaine 1 % over receptive injection site. An 18 gauge 3.5 inch Tuohy needle was slowly inserted and advanced using [id number] technique to air with AP and Lateral fluoroscopic imaging for needle guidance. Negative aspiration for blood and CSF was confirmed. Epidural contrast spread was confirmed using 2 mL of Omnipaque contrast Absence of vascular uptake was confirmed as well. A total of 5 cc of lidocaine 0.5% mixed with 80 mg of Triamcinolone was injected. Needle was then removed and bleeding was nil. Sterile dressing was applied and the patient was brought to the Recovery Room in stable condition. Complications: None. Estimated Blood Loss: None. Drains: None. Implantable Device: None. Specimen: None. Rukhsana Raya DO, performed the entire procedure. ASSESSMENT AND PLAN: Mara Loza is status post L5-S1 interlaminar epidural steroid injection. She did very well without any apparent complications. She is to return to clinic in 8 weeks for follow up. Postoperative instructions were given. She voiced understanding, and she was taken to the recovery room in stable condition. Rukhsana Milian DO Pain Management November 24, 2022 [facility] CNOVon 11-23-2022 CNOV Office Visit (PAINLN) DAGOMARA Tapia ([id number]) 1960 F Date Time Provider Department 11/23/22 2:00 PM MARISSA SIMON PAINLN During your visit today, we recorded the following information about you: Pulse Height 69/minute 1.6 m Marissa Simon APRN.AUTOMOBILE TESTER 11/24/2022 9:14 AM Signed Ms. Loza a 62 year old female returns today for follow up of MRI Review, she states that symptoms are slightly worse. PAIN: Pain Yes. Location: low back, rates pain a 9 on a pain scale of 1-10. Patient describes pain as sharp,stabbing,achy, radiating numbness and tingling,duration to the present time occuring daily x 8 MEDICATIONS: Medications reviewed and verified. Current Outpatient Medications Medication Sig diclofenac (VOLTAREN) 1 % topical gel Apply 2 g to affected area four times daily. losartan (COZAAR) 100 mg tablet Take 100 mg by mouth once daily. estradiol (AUBRIE, VIVELLE-DOT) 0.05 mg/24 hr Apply 1 Patch as directed once each week. famotidine (PEPCID) 40 mg tablet Take 40 mg by mouth once daily. metoprolol succinate XL, long acting, 50 mg 24 hr tablet Take 25 mg by mouth once daily. FLUOCINOLONE ACETONIDE (FLUOCINOLONE TOPICAL) Apply to affected area as needed. nabumetone (RELAFEN) 750 mg tablet Take 750 mg by mouth twice daily. No current facility-administere d medications for this visit. Patient feels that medications have not helped PREVIOUS TREATMENTS LASTING SIX WEEKS IN THE LAST SIX MONTHS Active conservative therapy lasting 6 weeks in the last six months (see below) 1. Physical therapy: No 2. Home exercise program after PT: No 3. Occupational therapy: No 4. A physician supervised home exercise program (HEP): No 5. Pantograph Setter: No Passive conservative therapy lasting 6 weeks in the last six months (see below) 1. Medical devises: No 2. Acupuncture: No 3. Tens unit: No 4. Prescription pain medication: No 5. NSAIDS: No TREATMENTS: LEFT L4-L5 and L5-S1 facet medial branch nerve radiofrequency ablation # 1 12/23/2021 (+) relief EXAM: Pulse 69 Ht 160 cm (5' 3 ) SpO2 99% BMI 37.02 kg/m? No acute distress noted, patient alert and oriented X's 3. Resistive testing proximal and distal in the upper and the lower extremeties show 5/5 strength. DTR's are symmetrical in the upper and the lower extremeties. Nerve root tension signs: Negative. Heart: RRR Lungs: Clear Abdomen: Soft, non tender Spine: Severe pain with flexion/extension, patient with paraspinal spasm on the right + SLR on the right, 4/5 D/P strength IMPRESSION: Some element copied from my note on 11/17/2022, which have been updated where appropriate, and all reflect my current medical decision making from today. This is a 62 year old female with history of chronic low back and hip pain in the setting of lumbar spondylosis, lumbar facet arthropathy. She comes to office today accompanied by her . She had MRI of lumbar spine that was revealing for Small shallow right central and subarticular disc protrusion at L4-5 mildly impinging on the right L5 nerve root sleeve. Mild left L5-S1 bony foraminal stenosis and epidural lipomatosis causing severe narrowing of the distal thecal sac. 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 These images were reviewed with the patient today in office. Since last office visit she has had significant worsening of her right radicular low back pain. She reports having discogenic pain. She has severe pain with changing positions, coughing, sneezing and having a bowel movement. This pain is interrupting her sleep. She has had stable 4/5 right D/P strength. She reports having right gluteal area and radiates down into the posterior aspect of her calf. She reports at times having tingling and tightness in this area. She also reports having right foot weakness and has been having issues with walking. She denies any red flag symptoms including weight loss, fevers, chills, night time awakening of pain, bowel bladder incontinence, saddle anesthesia, progressive numbness or weakness. We discussed that if these symptoms should arise she should seek emergency treatment. She has continued rehab care assistant with Dr. Jorje Rodriges in [facility] every 2 weeks for the last several months. She also has continued to use voltaren gel, tylenol and heat. I spent a total of 30 minutes on the date of the service which included preparing to see the patient, [id number] patient care, completing clinical documentation, obtaining and/or reviewing separately obtained history, performing a medically appropriate examination, counseling and educating the patient/family/careg iver, and ordering medications, tests, or procedures. PLAN: Right lumbar radiculopathy (primary encounter diagnosis) Discogenic pain Lumbar spondylosis MRI and patient's office visit was discussed with Dr. Finn he recommend (more content not included)... [facility] MR Lumbar spine WO contrasto n 11-19-2022 IMPRESSION: Small shallow right central and subarticular disc protrusion at L4-5 mildly impinging on the right L5 nerve root sleeve. Mild left L5-S1 bony foraminal stenosis and epidural lipomatosis causing severe narrowing of the distal thecal sac. 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 Anatomic Lumbar Variant: Transitional L5 vertebral body. L4-5 is considered the level of the iliac crest and there are 5 lumbar-type vertebrae. Staff Physical Therapy Assistant: PARESH Transcribe Date/Time: Nov 19 2022 4:12P Dictated by : MANDEEP STARR MD This examination was interpreted and the report reviewed and electronically signed by: MANDEEP STARR MD on Nov 19 2022 4:20PM [facility] DIVISION OF RADIOLOGY * * *Final Report* * * DATE OF EXAM: Nov 19 2022 3:14PM LN 0303 - MRI LUMBAR SPINE WO IVCON / PROCEDURE REASON: multiple diagnoses * * * * Physician Interpretation * * * * EXAMINATION: MRI LUMBAR SPINE WO IVCON CLINICAL HISTORY: Lumbar radiculopathy. Right foot drop. TECHNIQUE: Routine lumbosacral spine MR protocol without gadolinium. MQ: [id number] COMPARISON: 08/15/2020 RESULT: Counting reference: Lumbosacral junction. For the purposes of this report, L4-5 is considered the level of the iliac crest and there are 5 lumbar-type vertebrae. Anatomic variant: Transitional L5 vertebral body. Localizer images: No additional findings. Alignment: Alignment is anatomic and unchanged. Moderate disc space narrowing is again noted at L4-5 and mild disc space narrowing is again noted at L5-S1. Bone marrow signal/fracture: No evidence of pathologic marrow infiltration. No evidence of prior fracture. Conus: The conus is within normal limits of signal intensity and morphology. Paraspinal soft tissues: Again noted is relative narrowing of the thecal sac from the L4-5 level caudally by prominent epidural fat. Lower thoracic spine: Visualized lower thoracic canal and foramina are patent. L1-L2: Canal and foramina are patent. L2-L3: Canal and foramina are patent L3-L4: Canal and foramina are patent L4-L5: Mild disc bulging and new broad-based shallow right central and subarticular disc protrusion abutting the exiting right L5 nerve root sleeve. No impact on the thecal sac. Neural foramina remain patent. L5-S1: Severe narrowing of the distal thecal sac by prominent epidural fat. Rostrocaudal facet subluxation with mild left foraminal stenosis. Right neural foramen is widely patent. No significant change. Sacrum and iliac wings: Again noted is prominent asymmetric fusion of the right SI joint. DIVISION OF RADIOLOGY Provider, [facility] [place] - 11/19/2022 * * *Final Report* * * DATE OF EXAM: Nov 19 2022 3:14PM [facility] 0303 - MRI LUMBAR SPINE WO IVCON / PROCEDURE REASON: multiple diagnoses * * * * Physician Interpretation * * * * EXAMINATION: MRI LUMBAR SPINE WO IVCON CLINICAL HISTORY: Lumbar radiculopathy. Right foot drop. TECHNIQUE: Routine lumbosacral spine MR protocol without gadolinium. MQ: [id number] COMPARISON: 08/15/2020 RESULT: Counting reference: Lumbosacral junction. For the purposes of this report, L4-5 is considered the level of the iliac crest and there are 5 lumbar-type vertebrae. Anatomic variant: Transitional L5 vertebral body. Localizer images: No additional findings. Alignment: Alignment is anatomic and unchanged. Moderate disc space narrowing is again noted at L4-5 and mild disc space narrowing is again noted at L5-S1. Bone marrow signal/fracture: No evidence of pathologic marrow infiltration. No evidence of prior fracture. Conus: The conus is within normal limits of signal intensity and morphology. Paraspinal soft tissues: Again noted is relative narrowing of the thecal sac from the L4-5 level caudally by prominent epidural fat. Lower thoracic spine: Visualized lower thoracic canal and foramina are patent. L1-L2: Canal and foramina are patent. L2-L3: Canal and foramina are patent L3-L4: Canal and foramina are patent L4-L5: Mild disc bulging and new broad-based shallow right central and subarticular disc protrusion abutting the exiting right L5 nerve root sleeve. No impact on the thecal sac. Neural foramina remain patent. L5-S1: Severe narrowing of the distal thecal sac by prominent epidural fat. Rostrocaudal facet subluxation with mild left foraminal stenosis. Right neural foramen is widely patent. No significant change. Sacrum and iliac wings: Again noted is prominent asymmetric fusion of the right SI joint. IMPRESSION IMPRESSION: Small shallow right central and subarticular disc protrusion at L4-5 mildly impinging on the right L5 nerve root sleeve. Mild left L5-S1 bony foraminal stenosis and epidural lipomatosis causing severe narrowing of the distal thecal sac. 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 Anatomic Lumbar Variant: Transitional L5 vertebral body. L4-5 is considered the level of the iliac crest and there are 5 lumbar-type vertebrae. Staff Physical Therapy Assistant: PARESH Transcribe Date/Time: Nov 19 2022 4:12P Dictated by : MANDEEP STARR MD This examination was interpreted and the report reviewed and electronically signed by: MANDEEP STARR MD on Nov 19 2022 4:20PM EST [facility] Radiology Study observation (narrative) [facility] MR Lumbar spine WO contrastO rdered By: [facility] Provider on 11-19-2022 [facility] MG MAMM SCREEN 3D RICARDO CADon 07-02-2022 MG MAMM SCREEN 3D RICARDO CAD Patient: MARA LOZA Exam Date: 07/02/2022 : 1960 Gender:F Ordering : DR ALBIN MOORE . Admission #: [id number] Family : Order #: [id number] CLICK HERE TO VIEW EXAM RADIOLOGY REPORT PROCEDURE: MAMMOGRAM SCREENING 3D BILATERAL CAD COMPARISON: MG MAMM SCREEN RICARDO W CAD, 05/08/2020. MG MAMM SCREEN 3D RICARDO CAD, 05/21/2021. INDICATIONS: Screening mammography Calculator Name NCI Breast Cancer Risk Assessment Tool 5 Year Breast Cancer Risk 4.00% Lifetime Breast Cancer Risk 20.10% Personal Breast Cancer No Personal Ovarian Cancer No Treatments Excision of tumor Family Cancers Sister with breast cancer at age 49; Aunt-maternal with breast cancer at age 55; Aunt-maternal with breast cancer at age 54; Mother with rectal cancer at age 68; Brother with skin cancer at age 52; Father with primary unknown. cancer at age 80. LOCATION: [facility] BREAST COMPOSITION: Heterogeneously dense,which may obscure small masses. FINDINGS: DIAGNOSTIC CATEGORY 2--BENIGN FINDING. NO CHANGE FROM COMPARISON. Scattered benign-appearing nodules are present. Scattered benign-appearing calcifications are present. Scattered benign-appearing lymph nodes are present. RIGHT BREAST: No significant suspicious finding. LEFT BREAST: No significant suspicious finding. Stable micro clip marker mid breast RECOMMENDATIONS: ROUTINE MAMMOGRAM AND CLINICAL EVALUATION IN 12 MONTHS. PLEASE NOTE: A NORMAL MAMMOGRAM DOES NOT EXCLUDE THE POSSIBILITY OF BREAST CANCER. A CLINICALLY SUSPICIOUS PALPABLE LUMP SHOULD BE BIOPSIED. Dictated by: Cresencio Quiroz MD on 07/02/2022 at 12:19 Approved by: Cresencio Quiroz MD on 07/02/2022 at 13:13 Normal [facility] LIPID PROFILEon 06-22-2022 CHOL-HDL RATIO NORM SEE BELOW Normal [facility] Comment on above: Result Comment: 3.3 - 4.4 LOW RISK 4.4 - 7.1 AVERAGE RISK 7.1 - 11.0 MODERATE RISK >11.0 HIGH RISK Performed By: #### C MP, LIPID #### [facility] [address] [address] [address] Adrienne Goldman Cholesterol [Mass/Vol] 192 mg/dL Normal <=200 [facility] Comment on above: Performed By: #### C MP, LIPID #### [facility] [address] [address] [address] Adrienne Goldman Cholesterol in HDL [Mass/Vol] 56 mg/dL Normal 40-60 [facility] Comment on above: Performed By: #### C MP, LIPID #### [facility] [address] [address] [address] Adrienne Goldman Cholesterol in LDL [Mass/Vol] 107.2 mg/dL Normal [facility] Comment on above: Performed By: #### C MP, LIPID #### [facility] [address] [place] [address] Dr. Adrienne Goldman Cholesterol.total/Ch olesterol in HDL [Mass ratio] 3.4 {ratio} Normal [facility] Comment on above: Performed By: #### C MP, LIPID #### [facility] [address] [place] [address] Dr. Adrienne Goldman HDL NORMAL > or = 60 mg/dl - LOW CARDIOVASCULAR RISK <40 mg/dl - HIGH CARDIOVASCULAR RISK Normal [facility] Comment on above: Performed By: #### C MP, LIPID #### [facility] [address] [place] [address] Dr. Adrienne Goldman LDL CALC NORMAL SEE BELOW Normal [facility] Comment on above: Result Comment: <100 mg/dl OPTIMAL 100 - 129 mg/dl NEAR OR ABOVE OPTIMAL 130 - 159 mg/dl BORDERLINE HIGH 160 - 189 mg/dl HIGH >190 mg/dl VERY HIGH Performed By: #### C MP, LIPID #### [facility] [address] [place] [address] Dr. Adrienne Goldman Triglyceride [Mass/Vol] 144 mg/dL Normal <=150 [facility] Comment on above: Performed By: #### C MP, LIPID #### [facility] [address] [address] [address] Adrienne Goldman VLDL CALC 28.8 mg/dL Normal [facility] Comment on above: Performed By: #### C MP, LIPID #### [facility] [address] [address] [address] Adrienne Goldman PROF 14(COMP METB)on 022 Albumin [Mass/Vol] 3.5 g/dL Normal 3.4-5.0 [facility] Comment on above: Performed By: #### C MP, LIPID #### [facility] [address] [place] [address] Dr. Adrienne Goldman Albumin/Globulin [Mass ratio] 0.8 {ratio} Normal [facility] Comment on above: Performed By: #### C MP, LIPID #### [facility] [address] [place] [address] Dr. Adrienne Goldman ALP [Catalytic activity/Vol] 122 U/L Critically high 46-116 [facility] Comment on above: Performed By: #### C MP, LIPID #### [facility] [address] [place] [address] Dr. Adrienne Goldman ALT [Catalytic activity/Vol] 28 U/L Normal 14-59 [facility] Comment on above: Performed By: #### C MP, LIPID #### [facility] [address] [place] [address] Dr. Adrienne Goldman Anion gap [Moles/Vol] 12.1 mmol/L Normal [facility] Comment on above: Performed By: #### C MP, LIPID #### [facility] [address] [place] [address] Dr. Adrienne Goldman AST [Catalytic activity/Vol] 18 U/L Normal 15-37 [facility] Comment on above: Performed By: #### C MP, LIPID #### [facility] [address] [place] [address] Dr. Adrienne Goldman Bilirubin [Mass/Vol] 0.4 mg/dL Normal 0.2-1.0 [facility] Comment on above: Performed By: #### C MP, LIPID #### [facility] [address] [address] [address] Adrienne Goldman Calcium [Mass/Vol] 9.2 mg/dL Normal 8.5-10.1 [facility] Comment on above: Performed By: #### C MP, LIPID #### [facility] [address] [address] [address] Adrienne Goldman Chloride [Moles/Vol] 105 mmol/L Normal 98-107 [facility] Comment on above: Performed By: #### C MP, LIPID #### [facility] [address] [place] [address] Dr. Adrienne Goldman CO2 [Moles/Vol] 26.9 mmol/L Normal 21.0-32.0 [facility] Comment on above: Performed By: #### C MP, LIPID #### [facility] [address] [place] [address] Dr. Adrienne Goldman Creatinine [Mass/Vol] 0.81 mg/dL Normal 0.55-1.02 [facility] Comment on above: Performed By: #### C MP, LIPID #### [facility] [address] [place] [address] Dr. Adrienne Goldman EGFR-AF SALVADOREAN >60 Normal >=60 [facility] Comment on above: Performed By: #### C MP, LIPID #### [facility] [address] [place] [address] Dr. Adrienne Goldman EGFR-NON AF SALVADOREAN >60 Normal >=60 [facility] Comment on above: Performed By: #### C MP, LIPID #### [facility] [address] [place] [address] Dr. Adrienne Goldman Globulin (S) [Mass/Vol] 4.3 g/dL Normal [facility] Comment on above: Performed By: #### C MP, LIPID #### [facility] [address] [place] [address] Dr. Adrienne Goldman Glucose [Mass/Vol] 95 mg/dL Normal 74-106 [facility] Comment on above: Performed By: #### C MP, LIPID #### [facility] [address] [place] [address] Dr. Adrienne Goldman Potassium [Moles/Vol] 4.0 mmol/L Normal 3.5-5.1 [facility] Comment on above: Performed By: #### C MP, LIPID #### [facility] [address] [address] [address] Adrienne Goldman Protein [Mass/Vol] 7.8 g/dL Normal 6.4-8.2 [facility] Comment on above: Performed By: #### C MP, LIPID #### [facility] [address] [address] [address] Adrienne Goldman Sodium [Moles/Vol] 140 mmol/L Normal 136-145 [facility] Comment on above: Performed By: #### C MP, LIPID #### [facility] [address] [address] [address] Adrienne Goldman Urea nitrogen [Mass/Vol] 13.0 mg/dL Normal 7.0-18.0 [facility] Comment on above: Performed By: #### C MP, LIPID #### [facility] [address] [address] [address] Adrienne Goldman Urea nitrogen/Creatinine [Mass ratio] 16.0 mg/mg Normal [facility] Comment on above: Performed By: #### C MP, LIPID #### [facility] [address] [address] [address] Adrienne Goldman XR HIP GENERAL 3V PELV/AP/LA T LEFTon 02-04-2022 [facility] XR LUMBAR GENERAL 3V AP/LAT/ L5-S1on 08-13-2021 [facility] MR Lumbar spine WO contrasto n 08-15-2020 IMPRESSION: Mild lower lumbar spondylosis notable for mild right subarticular zone narrowing at L4-5, and for mild left subarticular zone and left foraminal narrowing at L5-S1. There is no high-grade spinal canal stenosis. Anatomic Thoracic/Lumbar Variant: None. L4-5 is considered the level of the iliac crest and assume there are 5 lumbar-type vertebrae. Staff Physical Therapy Assistant: PSCB Transcribe Date/Time: Aug 15 2020 4:56P Dictated by : ADE MARKS MD This examination was interpreted and the report reviewed and electronically signed by: ADE MARKS MD on Aug 15 2020 5:09PM [facility] DIVISION OF RADIOLOGY * * *Final Report* * * DATE OF EXAM: Aug 15 2020 4:39PM [facility] 0303 - MRI LUMBAR SPINE WO IVCON / PROCEDURE REASON: multiple diagnoses * * * * Physician Interpretation * * * * EXAMINATION: MRI LUMBAR SPINE WO IVCON CLINICAL HISTORY: Spinal stenosis of lumbar region without neurogenic claudication Radiculopathy, lumbar region TECHNIQUE: Routine lumbosacral spine MR protocol without gadolinium. MQ: [id number] COMPARISON: None. RESULT: Counting reference: Lumbosacral junction. For the purposes of this report, L4-5 is considered the level of the iliac crest and assume there are 5 lumbar-type vertebrae. Anatomic variant: None. Localizer images: No additional findings. Alignment: Alignment is anatomic. Bone marrow signal/fracture: No evidence of pathologic marrow infiltration. No evidence of prior fracture. Conus: The conus is within normal limits of signal intensity and morphology. Paraspinal soft tissues: Paraspinal soft tissues are within normal limits. Lower thoracic spine: Visualized lower thoracic canal and foramina are patent. T12-L1: Canal and foramina are patent. L1-L2: Canal and foramina are patent. L2-L3: Canal and foramina are patent L3-L4: Canal and foramina are patent L4-L5: Mild disc bulging with shallow right paracentral protrusion. Minimal crowding of the right subarticular zone and otherwise patent spinal canal. Minimal right foraminal narrowing. L5-S1: Mild eccentric left disc bulging with endplate osteophytes. Mild crowding of the left subarticular zone and mild stenosis of the left neural foramen. Sacrum and iliac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 often to you hav e a drink containing alcohol? Monthly or less [facility] How many standard dr inks containing alcohol do you have on a typical day? 1 or 2 [facility] How often do you hav e 6 or more drinks on 1 occasion? Never [facility] Do you feel stress - tense, restless, nervous, or anxious, or unable to sleep at night because your mind is troubled all the time - these days [OSQ] To some extent [facility] (I/We) worried wheth er (my/our) food would run out before (I/we) got money to buy more. Never true [facility] Start: 12-14-2022 Education 21 [facility] Start: 12-14-2022 Alcohol Comment Caffeine intake 1-2 cups per day [facility] Start: 12-21-2022 Sexual orientation Heterosexual (finding) [facility] Do you belong to any clubs or organizations such as confucianism groups, unions, fraternal or athletic groups, or school groups? Yes [facility] Medical Equipment Procedure Code Equipment Code Equipment Origin al Text Equipment Identifier Dates [address] q11 Reveal [id number] Start: 02-06-2014 Functional Status Date Assessment Result Facility 05-19-2022 Functional Status N/A [facility] Clinical Notes 05-18-2016 to 06-21-2024 Albin Moore MD - 06/21/2024 9:00 AM Marissa Jenkins, KEISHA.AUTOMOBILE TESTER - 11/22/2023 11:00 AM EDTTelephone Encounter - Ritu Chaidez LPN - 10/28/2023 3:53 PM EDTPatient Instructions Note Date & Type Note Facility 06-21-2024 History of Presen t illness Narrative Images from the original note were not included. Patient ID: Mara Loza is a 63 y.o. female who presents for: Hypertension Patient is here for follow-up of elevated blood pressure. She is exercising and is adherent to a low-salt diet. Blood pressure is well controlled at home. Cardiac symptoms: none. Patient denies chest pain, dyspnea, and irregular heart beat. Cardiovascular risk factors: dyslipidemia, hypertension, obesity (BMI >= 30 kg/m2), and sedentary lifestyle. Use of agents associated with hypertension: none. History of target organ damage: none. 125/85 Hyperlipidemia Pt who presents for follow-up of dyslipidemia. A repeat fasting lipid profile was done. The patient does not use medications that may worsen dyslipidemias (corticosteroids, progestins, anabolic steroids, diuretics, beta-blockers, amiodarone, cyclosporine, olanzapine). Exercise: intermittently. Female HRT: Symptoms include: Hot Flashes, Low Sex Drive, Insomnia Severity: Feels better since starting HRT treatment: Yes/No Other Symptoms: Mood Swings, Bladder Issues, Thinning Hair, Breast Complaints Date of Last Mammogram: ANDREA Tylert complains of heartburn. This has been associated with no other symptoms. He/She denies chest pain, difficulty swallowing, and heartburn. Symptoms have been present for several years . He/She denies dysphagia. He/She has not lost weight. He/She denies melena, hematochezia, hematemesis, and coffee ground emesis. Review of Systems Constitutional: Negative for activity change and fatigue. Respiratory: Negative for cough, shortness of breath and wheezing. Cardiovascular: Negative for chest pain, palpitations and leg swelling. Neurological: Negative for light-headedness and headaches. Objective The patient is pleasant and in no acute distress. The neck is supple and trachea is midline. No masses are appreciated. The heart is regular rate and rhythm without S3, S4. No murmur. The patient has normal respiratory pattern. The breath sounds are symmetrical without evidence of rhonchi or rales. No wheezing. The skin is warm and dry. The lower extremities have trace edema. The patient has good eye contact and speech is clear. Appropriate affect. Visit Vitals BP 132/82 OB Status Postmenopausal Smoking Status Never Labs Reviewed Allergies Allergen Reactions Azithromycin Other Reaction(s): nausea vomiting Doxycycline Other Reaction(s): Vomiting Penicillins Unknown Other Reaction(s): avoidance proferia Cefuroxime Rash Other Reaction(s): vomiting Ciprofloxacin Dizziness and Rash Current Outpatient Medications on File Prior to Visit Medication Sig Dispense Refill albuterol (2.5 MG/3ML) 0.083% nebulizer solution Take 2.5 mg by nebulization every 6 (six) hours if needed for wheezing. fluocinonide (Lidex) 0.05 % external solution Apply topically Daily. [DISCONTINUED] estradiol (Vivelle-DOT) 0.05 MG/24HR Use 1 patch 2 times weekly 24 patch 1 [DISCONTINUED] famotidine (Pepcid) 40 MG tablet Take 1 tablet (40 mg) by mouth at bedtime 90 tablet 1 [DISCONTINUED] losartan (Cozaar) 100 MG tablet Take 1 tablet (100 mg) by mouth Daily 90 tablet 1 [DISCONTINUED] metoprolol succinate XL (Toprol-XL) 100 MG 24 hr tablet Take 1 tablet (100 mg) by mouth Daily 90 tablet 1 No current facility-administered medications on file prior to visit. 1. Benign essential hypertension (CMS/HCC) Chronic problem, stable, to goal - metoprolol succinate XL (Toprol-XL) 100 MG 24 hr tablet; Take 1 tablet (100 mg) by mouth Daily Dispense: 90 tablet; Refill: 1 - losartan (Cozaar) 100 MG tablet; Take 1 tablet (100 mg) by mouth Daily Dispense: 90 tablet; Refill: 1 2. Mixed hyperlipidemia (CMS/HCC) Chronic problem, stable, somewhat elevated triglycerides but now with her correction she is going to be making lifestyle changes. 3. Gastroesophageal reflux disease without esophagitis In prescribing a renewal to their current medication, consideration of the following encompasses moderate decision making; the current prescriptions and supplements, the current allergies and medication intolerances, current medical conditions, and potential drug interactions. Any changes to risks, benefits, and reason for renewing their current medication due to the above were discussed. The patient was given a chance to ask questions today and all questions were answered. The patient is to contact us if any other questions arise or if any problems occur. (Utilizing the original 1994/1996 guidelines or the 2020 office/outpatient code guidelines for selecting the level of E/M service, In both sets of guidelines, prescription drug management appears in the moderate medical decision making (MDM) row. Neither the original guidelines nor the new guidelines state that a new prescription or change is needed in order to credit prescription drug management) - famotidine (Pepcid) 40 MG tablet; Take 1 tablet (40 mg) by mouth at bedtime Dispense: 90 tablet; Refill: 1 4. Surgical menopause Chronic problem. We did discuss pros and cons of continuing estrogen. We have mutually agreed to continue the estrogen for now. Patient understands she needs to continue breast cancer screening. - estradiol (Vivelle-DOT) 0.05 MG/24HR; Use 1 patch 2 times weekly Dispense: 24 patch; Refill: 1 5. History of hysterectomy Chronic problem, exclusionary diagnosis with the HEDIS measures for cervical cancer screening documented in this encounter [facility] 11-22-2023 Note HNO ID: [id number] Author: MARISSA SIMON APRN.AUTOMOBILE TESTER Service: ? Author Type: Nurse Practitioner Type: Progress Notes Filed: 11/22/2023 11:20 Note Text: Ms. Loza a 63 year old female returns today for follow up of post procedure, she states that symptoms have improved. PAIN: Pain Yes. Location: LB, rates pain a 1 on right side on a pain scale of 1-10. Patient describes pain as aching, duration to the present time occuring daily x 1. MEDICATIONS: Medications reviewed and verified. Current Outpatient Medications Medication Sig DULoxetine (CYMBALTA) 20 mg capsule Take 1 capsule by mouth once daily. diclofenac (VOLTAREN) 1 % topical gel Apply 2 g to affected area four times daily. nabumetone (RELAFEN) 750 mg tablet Take 750 mg by mouth twice daily. losartan (COZAAR) 100 mg tablet Take 100 mg by mouth once daily. estradiol (AUBRIE, VIVELLE-DOT) 0.05 mg/24 hr Apply 1 Patch as directed once each week. famotidine (PEPCID) 40 mg tablet Take 40 mg by mouth once daily. metoprolol succinate XL, long acting, 50 mg 24 hr tablet Take 25 mg by mouth once daily. FLUOCINOLONE ACETONIDE (FLUOCINOLONE TOPICAL) Apply to affected area as needed. No current facility-administered medications for this visit. Patient feels that medications have helped a little PREVIOUS TREATMENTS LASTING SIX WEEKS IN THE LAST SIX MONTHS Active conservative therapy lasting 6 weeks in the last six months (see below) 1. Physical therapy: 2. Home exercise program after PT: No 3. Occupational therapy: No 4. A physician supervised home exercise program (HEP): No 5. Pantograph Setter: Yes Passive conservative therapy lasting 6 weeks in the last six months (see below) 1. Medical devises: No 2. Acupuncture: No 3. Tens unit: No 4. Prescription pain medication: No 5. NSAIDS: TREATMENTS: L5-S1 Interlaminar epidural steroid injection under fluoroscopic guidance. On 09/07/2023 Injection did not help at all. 50% relief for only 2 days. BILATERAL L4-L5 and L5-S1 facet medial branch nerve radiofrequency ablation # 1 10/19/2023 10/19/2023 100% left side 90% on the right Pantograph Setter Dr Jorje Rodriges 11/23/2023 adjustment EXAM: Pulse 64 Ht 160 cm (5' 3 ) Wt 85.3 kg (188 lb) SpO2 99% BMI 33.30 kg/m? No acute distress noted, patient alert and oriented X's 3. Resistive testing proximal and distal in the upper and the lower extremeties show 5/5 strength. DTR's are symmetrical in the upper and the lower extremeties. Nerve root tension signs: Negative. Heart: RRR Lungs: Clear Abdomen: Soft, non tender Spine: tenderness with palpation of lumbar spine IMPRESSION: Some element copied from my note on 10/06/2023, which have been updated where appropriate, and all reflect my current medical decision making from today. This is a 62 year old female with history of chronic low back and hip pain in the setting of lumbar spondylosis, lumbar facet arthropathy, lumbar disc herniation. Since last office visit she has undergone the following procedures: 09/07/2022 LESI L5-S1 10/19/2023 BILATERAL L4-L5 and L5-S1 facet medial branch nerve radiofrequency ablation # 1 under fluoroscopic guidance. Pre pain procedure: 02/24 Post pain procedure: 07/27 She reports this injection has offered her 90% pain relief of her axial low back. Functional Improvement: She has been able to increase her physical activity. She has been able to do things like play pickle ball and ride her bike. 2023 PROMIS CAT Pain Interference PROMIS Adult Short Form-Global Health Score (Mental) 62.5 (Excellent) 10/02/2023 PROMIS CAT Pain Interference PROMIS Pain Interference T-Score (range: 10 - 90) 66 (moderate) PROMIS Pain Interference Percentile 5 She reports having worsening axial low back pain she has some aching pain on her right side. She denies any red flag symptoms including weight loss, fevers, chills, night time awakening of pain, bowel bladder incontinence, saddle anesthesia, progressive numbness or weakness. We discussed that if these symptoms should arise she should seek emergency treatment. She has had MRI of lumbar spine that was revealing for Small shallow right central and subarticular disc protrusion at L4-5 mildly impinging on the right L5 nerve root sleeve. Mild left L5-S1 bony foraminal stenosis and epidural lipomatosis causing severe narrowing of the distal thecal sac. 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 These images were reviewed with the patient today in office She has continued rehab care assistant with Dr. Jorje Rodriges in [facility] every 2 weeks for the last several months. She also has continued to use voltaren gel, tylenol and heat. She trial Cymbalta and was unable to tolerate this due to worsening insomnia. I spent a total of 30 minutes on the date of the service which included preparing to see the patient, [id number] patient care, completing clinical documentation, obtaining and/o (more content not included)... [facility] 11-22-2023 History of Presen t illness Narrative Images from the original note were not included. Ms. Loza a 63 year old female returns today for follow up of post procedure, she states that symptoms have improved. PAIN: Pain Yes. Location: LB, rates pain a 1 on right side on a pain scale of 1-10. Patient describes pain as aching, duration to the present time occuring daily x 1. MEDICATIONS: Medications reviewed and verified. Current Outpatient Medications Medication Sig DULoxetine (CYMBALTA) 20 mg capsule Take 1 capsule by mouth once daily. diclofenac (VOLTAREN) 1 % topical gel Apply 2 g to affected area four times daily. nabumetone (RELAFEN) 750 mg tablet Take 750 mg by mouth twice daily. losartan (COZAAR) 100 mg tablet Take 100 mg by mouth once daily. estradiol (AUBRIE, VIVELLE-DOT) 0.05 mg/24 hr Apply 1 Patch as directed once each week. famotidine (PEPCID) 40 mg tablet Take 40 mg by mouth once daily. metoprolol succinate XL, long acting, 50 mg 24 hr tablet Take 25 mg by mouth once daily. FLUOCINOLONE ACETONIDE (FLUOCINOLONE TOPICAL) Apply to affected area as needed. No current facility-administered medications for this visit. Patient feels that medications have helped a little PREVIOUS TREATMENTS LASTING SIX WEEKS IN THE LAST SIX MONTHS Active conservative therapy lasting 6 weeks in the last six months (see below) 1. Physical therapy: 2. Home exercise program after PT: No 3. Occupational therapy: No 4. A physician supervised home exercise program (HEP): No 5. Pantograph Setter: Yes Passive conservative therapy lasting 6 weeks in the last six months (see below) 1. Medical devises: No 2. Acupuncture: No 3. Tens unit: No 4. Prescription pain medication: No 5. NSAIDS: TREATMENTS: L5-S1 Interlaminar epidural steroid injection under fluoroscopic guidance. On 09/07/2023 Injection did not help at all. 50% relief for only 2 days. BILATERAL L4-L5 and L5-S1 facet medial branch nerve radiofrequency ablation # 1 10/19/2023 10/19/2023 100% left side 90% on the right Pantograph Setter Dr Jorje Rodriges 11/23/2023 adjustment EXAM: Pulse 64 Ht 160 cm (5' 3 ) Wt 85.3 kg (188 lb) SpO2 99% BMI 33.30 kg/m No acute distress noted, patient alert and oriented X's 3. Resistive testing proximal and distal in the upper and the lower extremeties show 5/5 strength. DTR's are symmetrical in the upper and the lower extremeties. Nerve root tension signs: Negative. Heart: RRR Lungs: Clear Abdomen: Soft, non tender Spine: tenderness with palpation of lumbar spine IMPRESSION: Some element copied from my note on 10/06/2023, which have been updated where appropriate, and all reflect my current medical decision making from today. This is a 62 year old female with history of chronic low back and hip pain in the setting of lumbar spondylosis, lumbar facet arthropathy, lumbar disc herniation. Since last office visit she has undergone the following procedures: 09/07/2022 LESI L5-S1 10/19/2023 BILATERAL L4-L5 and L5-S1 facet medial branch nerve radiofrequency ablation # 1 under fluoroscopic guidance. Pre pain procedure: 02/24 Post pain procedure: 07/27 She reports this injection has offered her 90% pain relief of her axial low back. Functional Improvement: She has been able to increase her physical activity. She has been able to do things like play pickle ball and ride her bike. 2023 PROMIS CAT Pain Interference PROMIS Adult Short Form-Global Health Score (Mental) 62.5 (Excellent) 10/02/2023 PROMIS CAT Pain Interference PROMIS Pain Interference T-Score (range: 10 - 90) 66 (moderate) PROMIS Pain Interference Percentile 5 She reports having worsening axial low back pain she has some aching pain on her right side. She denies any red flag symptoms including weight loss, fevers, chills, night time awakening of pain, bowel bladder incontinence, saddle anesthesia, progressive numbness or weakness. We discussed that if these symptoms should arise she should seek emergency treatment. She has had MRI of lumbar spine that was revealing for Small shallow right central and subarticular disc protrusion at L4-5 mildly impinging on the right L5 nerve root sleeve. Mild left L5-S1 bony foraminal stenosis and epidural lipomatosis causing severe narrowing of the distal thecal sac. 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 These images were reviewed with the patient today in office She has continued rehab care assistant with Dr. Jorje Rodriges in [facility] every 2 weeks for the last several months. She also has continued to use voltaren gel, tylenol and heat. She trial Cymbalta and was unable to tolerate this due to worsening insomnia. I spent a total of 30 minutes on the date of the service which included preparing to see the patient, [id number] patient care, completing clinical documentation, obtaining and/or reviewing separately obtained history, performing a medically appropriate examination, counseling and educating the patient/family/caregiver, and ordering medications, tests, or procedures. Facet arthropathy, lumbosacral (primary encounter diagnosis) Lumbar degenerative disc disease Lumbar spondylosis PLAN: D/c Pieter Continue college and career counselor Reviewed red flag symptoms Consider repeat Bilateral Lumbar RFA RTC as needed Marissa Simon APRN.AUTOMOBILE TESTER November 22, [address] in this encounter [facility] 10-28-2023 Miscellaneous Notes Rx sent on 10/06/[address] this encounter [facility] 10-21-2023 Miscellaneous Notes DATE OF SERVICE: 10/19/23 PATIENT'S PHONE NUMBERS: [phone] (home) [phone] (work) PROVIDER: Dr. Finn PROCEDURE: BILATERAL L4-L5 and L5-S1 facet medial branch nerve radiofrequency ablation # 1 under fluoroscopic guidance. Pre 3 post 3 Spoke directly with patient/caregiver Patient states that they are 70% better. Patient states she can move around better Patient claims to have no problems. Mara Loza is status post Right and Left L4 and L5 facet medial branch nerve radiofrequency ablation. She did very well today without any apparent complications. She is to return to the clinic in 8-12 weeks for followup. Feels cymbalta gives her insomnia - suggested she take it in the AM. Postoperative instructions given, she voiced understanding. She was taken to the recovery room in stable condition. Appointment already scheduled 11/22/23 documented [address] this encounter [facility] 10-06-2023 Miscellaneous Notes RFA Bilateral Lumbar L4-L5, L5-S1 DAGOMARA Tapia [id number] SILVINA FINN 10/18 -THINNERS -DM Patient was made aware that the [facility] will call the day prior to scheduled procedure between the hours of 12 and 4 pm to advise patient of arrival time the day of procedure. Patient was advised that they will require a motor vehicle escort driver on the day of their procedure, and procedure will be cancelled if they arrive without a responsible adult to transport them home from the procedure. Patient advised that all medication management instructions prior to procedure will need addressed by clinical staff. Patient expresses understanding with no further questions or concerns at this time. documented in this encounter [facility] 10-06-2023 Note HNO ID: [id number] Author: MARISSA SIMON APRN.AUTOMOBILE TESTER Service: ? Author Type: Nurse Practitioner Type: Progress Notes Filed: 10/06/2023 12:30 Note Text: Ms. Loza a 62 year old female returns today for follow up of post injection, she states that symptoms are much worse. PAIN: Pain Yes. Location: low back, rates pain a 8 on a pain scale of 1-10. Patient describes pain as constant sharp and sometimes shooting down her legs to her knees, sometimes in her hips, duration to the present time occuring daily x 4. MEDICATIONS: Medications reviewed and verified. Current Outpatient Medications Medication Sig traMADol (ULTRAM) 50 mg tablet Take 1 tablet by mouth twice daily as needed for pain. diclofenac (VOLTAREN) 1 % topical gel Apply 2 g to affected area four times daily. nabumetone (RELAFEN) 750 mg tablet Take 750 mg by mouth twice daily. losartan (COZAAR) 100 mg tablet Take 100 mg by mouth once daily. estradiol (AUBRIE, VIVELLE-DOT) 0.05 mg/24 hr Apply 1 Patch as directed once each week. famotidine (PEPCID) 40 mg tablet Take 40 mg by mouth once daily. metoprolol succinate XL, long acting, 50 mg 24 hr tablet Take 25 mg by mouth once daily. FLUOCINOLONE ACETONIDE (FLUOCINOLONE TOPICAL) Apply to affected area as needed. No current facility-administered medications for this visit. Patient feels that medications have not used PREVIOUS TREATMENTS LASTING SIX WEEKS IN THE LAST SIX MONTHS Active conservative therapy lasting 6 weeks in the last six months (see below) 1. Physical therapy: No 2. Home exercise program after PT: No 3. Occupational therapy: No 4. A physician supervised home exercise program (HEP): No 5. Pantograph Setter: No Passive conservative therapy lasting 6 weeks in the last six months (see below) 1. Medical devises: No 2. Acupuncture: No 3. Tens unit: No 4. Prescription pain medication: No 5. NSAIDS: No TREATMENTS: L5-S1 Interlaminar epidural steroid injection under fluoroscopic guidance. On 09/07/2023 Injection did not help at all. 50% relief for only 2 days. EXAM: Pulse (!) 58 SpO2 98% No acute distress noted, patient alert and oriented X's 3. Resistive testing proximal and distal in the upper and the lower extremeties show 5/5 strength. DTR's are symmetrical in the upper and the lower extremeties. Nerve root tension signs: Negative. Heart: RRR Lungs: Clear Abdomen: Soft, non tender Spine: tenderness with palpation of lumbar facets, reproducible pain with axial loading and extension IMPRESSION: Some element copied from my note on 08/18/2023, which have been updated where appropriate, and all reflect my current medical decision making from today. This is a 62 year old female with history of chronic low back and hip pain in the setting of lumbar spondylosis, lumbar facet arthropathy, lumbar disc herniation. Since last office visit she has undergone the following procedures: 09/07/2022 LESI L5-S1 Pre pain procedure: 02/24 Post pain procedure: 07/27 She reports this injection has offered her 80% pain relief of her radicular low back pain. She reports having worsening axial low back pain. Pain is worsened with axial loading and extension. She is unable to do things like vacuuming, and sitting. She denies any red flag symptoms including weight loss, fevers, chills, night time awakening of pain, bowel bladder incontinence, saddle anesthesia, progressive numbness or weakness. We discussed that if these symptoms should arise she should seek emergency treatment. She having some recurrent lower back pain. This pain does not radiate down the lateral aspect of her leg She has worsening of her pain with prolonged sitting like at basketball games. In the past she has undergone the following procedures: 12/23/2021 LEFT L4-L5 and L5-S1 facet medial branch nerve radiofrequency ablation # 1 under fluoroscopic guidance. Right L4-L5 and L5-S1 facet medial branch nerve radiofrequency ablation # 1 under fluoroscopic guidance Pre procedure pain score: 02/24 Post procedure pain score: 07/27 She had 85% pain relief of her axial low back pain for 1 1/2 years. She was able to increase her physical activity. 10/02/2023 PROMIS CAT Pain Interference PROMIS Pain Interference T-Score (range: 10 - 90) 66 (moderate) PROMIS Pain Interference Percentile 5 MRI of lumbar spine that was revealing for Small shallow right central and subarticular disc protrusion at L4-5 mildly impinging on the right L5 nerve root sleeve. Mild left L5-S1 bony foraminal stenosis and epidural lipomatosis causing severe narrowing of the distal thecal sac. 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 These images were reviewed with the patient today in office She has continued rehab care assistant with Dr. Jorje Rodriges in [facility] every 2 weeks for the last several months. She also has continued to use voltaren gel, tylenol and heat. I spent a total of 30 minutes on t (more content not included)... [facility] 10-06-2023 History of Presen t illness Narrative Images from the original note were not included. Ms. Loza a 62 year old female returns today for follow up of post injection, she states that symptoms are much worse. PAIN: Pain Yes. Location: low back, rates pain a 8 on a pain scale of 1-10. Patient describes pain as constant sharp and sometimes shooting down her legs to her knees, sometimes in her hips, duration to the present time occuring daily x 4. MEDICATIONS: Medications reviewed and verified. Current Outpatient Medications Medication Sig traMADol (ULTRAM) 50 mg tablet Take 1 tablet by mouth twice daily as needed for pain. diclofenac (VOLTAREN) 1 % topical gel Apply 2 g to affected area four times daily. nabumetone (RELAFEN) 750 mg tablet Take 750 mg by mouth twice daily. losartan (COZAAR) 100 mg tablet Take 100 mg by mouth once daily. estradiol (AUBRIE, VIVELLE-DOT) 0.05 mg/24 hr Apply 1 Patch as directed once each week. famotidine (PEPCID) 40 mg tablet Take 40 mg by mouth once daily. metoprolol succinate XL, long acting, 50 mg 24 hr tablet Take 25 mg by mouth once daily. FLUOCINOLONE ACETONIDE (FLUOCINOLONE TOPICAL) Apply to affected area as needed. No current facility-administered medications for this visit. Patient feels that medications have not used PREVIOUS TREATMENTS LASTING SIX WEEKS IN THE LAST SIX MONTHS Active conservative therapy lasting 6 weeks in the last six months (see below) 1. Physical therapy: No 2. Home exercise program after PT: No 3. Occupational therapy: No 4. A physician supervised home exercise program (HEP): No 5. Pantograph Setter: No Passive conservative therapy lasting 6 weeks in the last six months (see below) 1. Medical devises: No 2. Acupuncture: No 3. Tens unit: No 4. Prescription pain medication: No 5. NSAIDS: No TREATMENTS: L5-S1 Interlaminar epidural steroid injection under fluoroscopic guidance. On 09/07/2023 Injection did not help at all. 50% relief for only 2 days. EXAM: Pulse (!) 58 SpO2 98% No acute distress noted, patient alert and oriented X's 3. Resistive testing proximal and distal in the upper and the lower extremeties show 5/5 strength. DTR's are symmetrical in the upper and the lower extremeties. Nerve root tension signs: Negative. Heart: RRR Lungs: Clear Abdomen: Soft, non tender Spine: tenderness with palpation of lumbar facets, reproducible pain with axial loading and extension IMPRESSION: Some element copied from my note on 08/18/2023, which have been updated where appropriate, and all reflect my current medical decision making from today. This is a 62 year old female with history of chronic low back and hip pain in the setting of lumbar spondylosis, lumbar facet arthropathy, lumbar disc herniation. Since last office visit she has undergone the following procedures: 09/07/2022 LESI L5-S1 Pre pain procedure: 02/24 Post pain procedure: 07/27 She reports this injection has offered her 80% pain relief of her radicular low back pain. She reports having worsening axial low back pain. Pain is worsened with axial loading and extension. She is unable to do things like vacuuming, and sitting. She denies any red flag symptoms including weight loss, fevers, chills, night time awakening of pain, bowel bladder incontinence, saddle anesthesia, progressive numbness or weakness. We discussed that if these symptoms should arise she should seek emergency treatment. She having some recurrent lower back pain. This pain does not radiate down the lateral aspect of her leg She has worsening of her pain with prolonged sitting like at basketball games. In the past she has undergone the following procedures: 12/23/2021 LEFT L4-L5 and L5-S1 facet medial branch nerve radiofrequency ablation # 1 under fluoroscopic guidance. Right L4-L5 and L5-S1 facet medial branch nerve radiofrequency ablation # 1 under fluoroscopic guidance Pre procedure pain score: 8/10 Post procedure pain score: 10 She had 85% pain relief of her axial low back pain for 1 1/2 years. She was able to increase her physical activity. 10/02/2023 PROMIS CAT Pain Interference PROMIS Pain Interference T-Score (range: 10 - 90) 66 (moderate) PROMIS Pain Interference Percentile 5 MRI of lumbar spine that was revealing for Small shallow right central and subarticular disc protrusion at L4-5 mildly impinging on the right L5 nerve root sleeve. Mild left L5-S1 bony foraminal stenosis and epidural lipomatosis causing severe narrowing of the distal thecal sac. 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 These images were reviewed with the patient today in office She has continued rehab care assistant with Dr. Jorje Rodriges in [facility] every 2 weeks for the last several months. She also has continued to use voltaren gel, tylenol and heat. I spent a total of 30 minutes on the date of the service which included preparing to see the patient, [id number] patient care, completing clinical documentation, obtaining and/or reviewing separately obtained history, performing a medically appropriate examination, counseling and educating the patient/family/caregiver, and ordering medications, tests, or procedures. Facet arthropathy, lumbosacral (primary encounter diagnosis) Lumbar degenerative disc disease Lumbar spondylosis PLAN: Repeat Bilateral Lumbar L4-L5, L5-S1 RFA Start trial of Cymbalta 20mg once daily Reviewed red flag symptoms to watch for RTC following injection Marissa Simon APRN.CNP October 06, 2023 documented in this encounter [facility] 09-29-2023 Miscellaneous Notes Called spoke with patient, provider's message below given. Patient denies any red flag symptoms. Patient denies the following red flag symptoms: fever or chills, weight loss, changes in bowel or bladder control (difficulty holding your urine or stool), saddle anesthesia (numbness or tingling in your groin), progressive numbness or weakness. If any of these symptoms should arise you should seek emergency treatment. Follow up appt scheduled to discuss RFA. Can we call patient and screen her for red flag symptoms Can we schedule office visit to see about repeating her RFA Marissa Simon APRN.HUA documented in this encounter [facility] 09-08-2023 Miscellaneous Notes Spoke to patient and scheduled her with Marissa Simon for a follow up in 12 weeks. Jose Chavez September 08, 2023 2:51 PM Called patient, verified name and , and asked % of pain relief and any functional improvement since L5-S1 Interlaminar epidural steroid injection under fluoroscopic guidance procedure with Dr Milian on 09/07/23. PrePain 5 PostPain 3 Patient states I have had 70 % of pain relief since my procedure on 09/07/23 and functional improvement in being able to walk and stand easier with less pain since the procedure. Patient denies any problems or further questions at this time. Patient instructed to call Pain Management office if she has any further questions or concerns. She is to return to clinic in 12 weeks for follow up with Marissa Simon APRN,HUA. Please schedule appt. documented in this encounter [facility] 08-22-2023 Telephone encounter Note Ml my chart note. [facility] 08-22-2023 Miscellaneous Notes Ml my chart note. documented in this encounter [facility] 08-18-2023 Miscellaneous Notes LESI L5-S1 MARA LOZA [id number] [facility] 09/07 -THINNERS -DM Patient was made aware that the [facility] will call the day prior to scheduled procedure between the hours of 12 and 4 pm to advise patient of arrival time the day of procedure. Patient was advised that they will require a motor vehicle escort driver on the day of their procedure, and procedure will be cancelled if they arrive without a responsible adult to transport them home from the procedure. Patient advised that all medication management instructions prior to procedure will need addressed by clinical staff. Patient expresses understanding with no further questions or concerns at this time. documented in this encounter [facility] 08-18-2023 Note HNO ID: [id number] Author: MARISSA SIMON APRN.AUTOMOBILE TESTER Service: ? Author Type: Nurse Practitioner Type: Progress Notes Filed: 08/18/2023 11:56 Note Text: Ms. Loza a 62 year old female returns today for follow up of re=eval, she states that symptoms have not changed. PAIN: Pain Yes. Location: low back and sometimes BLE, rates pain a 3 on a pain scale of 1-10. Patient describes pain as aching and soreness, duration to the present time occuring daily more when sitting. MEDICATIONS: Medications reviewed and verified. Current Outpatient Medications Medication Sig nabumetone (RELAFEN) 750 mg tablet Take 750 mg by mouth twice daily. losartan (COZAAR) 100 mg tablet Take 100 mg by mouth once daily. famotidine (PEPCID) 40 mg tablet Take 40 mg by mouth once daily. metoprolol succinate XL, long acting, 50 mg 24 hr tablet Take 25 mg by mouth once daily. FLUOCINOLONE ACETONIDE (FLUOCINOLONE TOPICAL) Apply to affected area as needed. traMADol (ULTRAM) 50 mg tablet Take 1 tablet by mouth twice daily as needed for pain. diclofenac (VOLTAREN) 1 % topical gel Apply 2 g to affected area four times daily. estradiol (AUBRIE, VIVELLE-DOT) 0.05 mg/24 hr Apply 1 Patch as directed once each week. No current facility-administered medications for this visit. Patient feels that medications have not used PREVIOUS TREATMENTS LASTING SIX WEEKS IN THE LAST SIX MONTHS Active conservative therapy lasting 6 weeks in the last six months (see below) 1. Physical therapy: No 2. Home exercise program after PT: No 3. Occupational therapy: No 4. A physician supervised home exercise program (HEP): No 5. Pantograph Setter: yes Passive conservative therapy lasting 6 weeks in the last six months (see below) 1. Medical devises: No 2. Acupuncture: No 3. Tens unit: No 4. Prescription pain medication: Yes 5. NSAIDS: No TREATMENTS: Pantograph Setter- gives relief EXAM: Pulse 60 Ht 160 cm (5' 3 ) SpO2 98% BMI 37.02 kg/m? No acute distress noted, patient alert and oriented X's 3. Resistive testing proximal and distal in the upper and the lower extremeties show 5/5 strength. DTR's are symmetrical in the upper and the lower extremeties. Nerve root tension signs: Negative. Heart: RRR Lungs: Clear Abdomen: Soft, non tender Spine: tenderness with palpation of lumbar spine IMPRESSION: Some element copied from my note on 01/27/2023, which have been updated where appropriate, and all reflect my current medical decision making from today. This is a 62 year old female with history of chronic low back and hip pain in the setting of lumbar spondylosis, lumbar facet arthropathy, lumbar disc herniation. She comes to office today accompanied by her . Since last office visit she has undergone the following procedures: 11/24/2022 LESI L5-S1 Pre pain procedure: 02/24 Post pain procedure: 07/27 She reports 90% pain for the last 6 months. Functional Improvement: Was able to increase her activity. Was able to exercise and was able to do things like play pickle ball. She having some recurrent lower back pain. This pain does not radiate down the lateral aspect of her leg She has worsening of her pain with prolonged sitting like at basketball games. She denies any red flag symptoms including weight loss, fevers, chills, night time awakening of pain, bowel bladder incontinence, saddle anesthesia, progressive numbness or weakness. We discussed that if these symptoms should arise she should seek emergency treatment. MRI of lumbar spine that was revealing for Small shallow right central and subarticular disc protrusion at L4-5 mildly impinging on the right L5 nerve root sleeve. Mild left L5-S1 bony foraminal stenosis and epidural lipomatosis causing severe narrowing of the distal thecal sac. 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 These images were reviewed with the patient today in office She has continued rehab care assistant with Dr. Jorje Rodriges in [facility] every 2 weeks for the last several months. She also has continued to use voltaren gel, tylenol and heat. I spent a total of 30 minutes on the date of the service which included preparing to see the patient, [id number] patient care, completing clinical documentation, obtaining and/or reviewing separately obtained history, performing a medically appropriate examination, counseling and educating the patient/family/caregiver, and ordering medications, tests, or procedures. PLAN: Repeat LESI L5-S1 Reviewed red flag symptoms to watch for RTC following injection Marissa Simon APRN.AUTOMOBILE TESTER August 18, 2023 [facility] 08-18-2023 History of Presen t illness Narrative Ms. Loza a 62 year old female returns today for follow up of re=eval, she states that symptoms have not changed. PAIN: Pain Yes. Location: low back and sometimes BLE, rates pain a 3 on a pain scale of 1-10. Patient describes pain as aching and soreness, duration to the present time occuring daily more when sitting. MEDICATIONS: Medications reviewed and verified. Current Outpatient Medications Medication Sig nabumetone (RELAFEN) 750 mg tablet Take 750 mg by mouth twice daily. losartan (COZAAR) 100 mg tablet Take 100 mg by mouth once daily. famotidine (PEPCID) 40 mg tablet Take 40 mg by mouth once daily. metoprolol succinate XL, long acting, 50 mg 24 hr tablet Take 25 mg by mouth once daily. FLUOCINOLONE ACETONIDE (FLUOCINOLONE TOPICAL) Apply to affected area as needed. traMADol (ULTRAM) 50 mg tablet Take 1 tablet by mouth twice daily as needed for pain. diclofenac (VOLTAREN) 1 % topical gel Apply 2 g to affected area four times daily. estradiol (AUBRIE, VIVELLE-DOT) 0.05 mg/24 hr Apply 1 Patch as directed once each week. No current facility-administered medications for this visit. Patient feels that medications have not used PREVIOUS TREATMENTS LASTING SIX WEEKS IN THE LAST SIX MONTHS Active conservative therapy lasting 6 weeks in the last six months (see below) 1. Physical therapy: No 2. Home exercise program after PT: No 3. Occupational therapy: No 4. A physician supervised home exercise program (HEP): No 5. Pantograph Setter: yes Passive conservative therapy lasting 6 weeks in the last six months (see below) 1. Medical devises: No 2. Acupuncture: No 3. Tens unit: No 4. Prescription pain medication: Yes 5. NSAIDS: No TREATMENTS: Pantograph Setter- gives relief EXAM: Pulse 60 Ht 160 cm (5' 3 ) SpO2 98% BMI 37.02 kg/m No acute distress noted, patient alert and oriented X's 3. Resistive testing proximal and distal in the upper and the lower extremeties show 5/5 strength. DTR's are symmetrical in the upper and the lower extremeties. Nerve root tension signs: Negative. Heart: RRR Lungs: Clear Abdomen: Soft, non tender Spine: tenderness with palpation of lumbar spine IMPRESSION: Some element copied from my note on 01/27/2023, which have been updated where appropriate, and all reflect my current medical decision making from today. This is a 62 year old female with history of chronic low back and hip pain in the setting of lumbar spondylosis, lumbar facet arthropathy, lumbar disc herniation. She comes to office today accompanied by her . Since last office visit she has undergone the following procedures: 11/24/2022 LESI L5-S1 Pre pain procedure: 02/24 Post pain procedure: 07/27 She reports 90% pain for the last 6 months. Functional Improvement: Was able to increase her activity. Was able to exercise and was able to do things like play pickle ball. She having some recurrent lower back pain. This pain does not radiate down the lateral aspect of her leg She has worsening of her pain with prolonged sitting like at basketball games. She denies any red flag symptoms including weight loss, fevers, chills, night time awakening of pain, bowel bladder incontinence, saddle anesthesia, progressive numbness or weakness. We discussed that if these symptoms should arise she should seek emergency treatment. MRI of lumbar spine that was revealing for Small shallow right central and subarticular disc protrusion at L4-5 mildly impinging on the right L5 nerve root sleeve. Mild left L5-S1 bony foraminal stenosis and epidural lipomatosis causing severe narrowing of the distal thecal sac. 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 These images were reviewed with the patient today in office She has continued rehab care assistant with Dr. Jorje Rodriges in [facility] every 2 weeks for the last several months. She also has continued to use voltaren gel, tylenol and heat. I spent a total of 30 minutes on the date of the service which included preparing to see the patient, [id number] patient care, completing clinical documentation, obtaining and/or reviewing separately obtained history, performing a medically appropriate examination, counseling and educating the patient/family/caregiver, and ordering medications, tests, or procedures. PLAN: Repeat LESI L5-S1 Reviewed red flag symptoms to watch for RTC following injection Marissa Simon APRN.CNP August 18, 2023 documented in this encounter [facility] 01-27-2023 Note HNO ID: [id number] Author: Marissa Simon APRN.CNP Service: ? Author Type: Nurse Practitioner Type: Progress Notes Filed: 01/27/2023 2:37 PM Note Text: Ms. Loza a 62 year old female returns today for follow up of post injection, she states that symptoms have improved. PAIN: Pain Yes. Location: LB, rates pain a 1 on a pain scale of 1-10. Patient describes pain as dull ache, duration to the present time occuring daily x 4. MEDICATIONS: Medications reviewed and verified. Current Outpatient Medications Medication Sig traMADol (ULTRAM) 50 mg tablet Take 1 tablet by mouth twice daily as needed for pain. diclofenac (VOLTAREN) 1 % topical gel Apply 2 g to affected area four times daily. nabumetone (RELAFEN) 750 mg tablet Take 750 mg by mouth twice daily. losartan (COZAAR) 100 mg tablet Take 100 mg by mouth once daily. estradiol (AUBRIE, VIVELLE-DOT) 0.05 mg/24 hr Apply 1 Patch as directed once each week. famotidine (PEPCID) 40 mg tablet Take 40 mg by mouth once daily. metoprolol succinate XL, long acting, 50 mg 24 hr tablet Take 25 mg by mouth once daily. FLUOCINOLONE ACETONIDE (FLUOCINOLONE TOPICAL) Apply to affected area as needed. No current facility-administered medications for this visit. Patient feels that medications have helped a little PREVIOUS TREATMENTS LASTING SIX WEEKS IN THE LAST SIX MONTHS Active conservative therapy lasting 6 weeks in the last six months (see below) 1. Physical therapy: No 2. Home exercise program after PT: No 3. Occupational therapy: No 4. A physician supervised home exercise program (HEP): No 5. Pantograph Setter: No Passive conservative therapy lasting 6 weeks in the last six months (see below) 1. Medical devises: No 2. Acupuncture: No 3. Tens unit: No 4. Prescription pain medication: No 5. NSAIDS: No TREATMENTS: L5-S1 Interlaminar epidural steroid injection under fluoroscopic guidance. On 11/24/2022 EXAM: Pulse 78 SpO2 98% No acute distress noted, patient alert and oriented X's 3. Resistive testing proximal and distal in the upper and the lower extremeties show 5/5 strength. DTR's are symmetrical in the upper and the lower extremeties. Nerve root tension signs: Negative. Heart: RRR Lungs: Clear Abdomen: Soft, non tender Spine: no tenderness with palpation of lumbar spine IMPRESSION: Some element copied from my note on 11/24/2022, which have been updated where appropriate, and all reflect my current medical decision making from today. This is a 62 year old female with history of chronic low back and hip pain in the setting of lumbar spondylosis, lumbar facet arthropathy. She comes to office today accompanied by her . Since last office visit she has undergone the following procedures: 11/24/2022 LESI L5-S1 She reports having 100% pain relief from this injection for the first 4-6 weeks. She reports having 80% pain relief at this time. She reports she has been able to walk and increase her physical activity. She was able to take her trip to [place] and was able to be active during this trip. She continues to have right sided lower back pain. This pain does not radiate down the lateral aspect of her leg. She has some slight pain today in office. She was able to undergo a massage which she reports helped with her pain. She denies any red flag symptoms including weight loss, fevers, chills, night time awakening of pain, bowel bladder incontinence, saddle anesthesia, progressive numbness or weakness. We discussed that if these symptoms should arise she should seek emergency treatment. MRI of lumbar spine that was revealing for Small shallow right central and subarticular disc protrusion at L4-5 mildly impinging on the right L5 nerve root sleeve. Mild left L5-S1 bony foraminal stenosis and epidural lipomatosis causing severe narrowing of the distal thecal sac. 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 These images were reviewed with the patient today in office She has continued rehab care assistant with Dr. Jorje Rodriges in [facility] every 2 weeks for the last several months. She also has continued to use voltaren gel, tylenol and heat. I spent a total of 30 minutes on the date of the service which included preparing to see the patient, [id number] patient care, completing clinical documentation, obtaining and/or reviewing separately obtained history, performing a medically appropriate examination, counseling and educating the patient/family/caregiver, and ordering medications, tests, or procedures. 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 Loza a 62 year old female returns today for follow up of post injection, she states that symptoms have improved. PAIN: Pain Yes. Location: LB, rates pain a 1 on a pain scale of 1-10. Patient describes pain as dull ache, duration to the present time occuring daily x 4. MEDICATIONS: Medications reviewed and verified. Current Outpatient Medications Medication Sig traMADol (ULTRAM) 50 mg tablet Take 1 tablet by mouth twice daily as needed for pain. diclofenac (VOLTAREN) 1 % topical gel Apply 2 g to affected area four times daily. nabumetone (RELAFEN) 750 mg tablet Take 750 mg by mouth twice daily. losartan (COZAAR) 100 mg tablet Take 100 mg by mouth once daily. estradiol (AUBRIE, VIVELLE-DOT) 0.05 mg/24 hr Apply 1 Patch as directed once each week. famotidine (PEPCID) 40 mg tablet Take 40 mg by mouth once daily. metoprolol succinate XL, long acting, 50 mg 24 hr tablet Take 25 mg by mouth once daily. FLUOCINOLONE ACETONIDE (FLUOCINOLONE TOPICAL) Apply to affected area as needed. No current facility-administered medications for this visit. Patient feels that medications have helped a little PREVIOUS TREATMENTS LASTING SIX WEEKS IN THE LAST SIX MONTHS Active conservative therapy lasting 6 weeks in the last six months (see below) 1. Physical therapy: No 2. Home exercise program after PT: No 3. Occupational therapy: No 4. A physician supervised home exercise program (HEP): No 5. Pantograph Setter: No Passive conservative therapy lasting 6 weeks in the last six months (see below) 1. Medical devises: No 2. Acupuncture: No 3. Tens unit: No 4. Prescription pain medication: No 5. NSAIDS: No TREATMENTS: L5-S1 Interlaminar epidural steroid injection under fluoroscopic guidance. On 11/24/2022 EXAM: Pulse 78 SpO2 98% No acute distress noted, patient alert and oriented X's 3. Resistive testing proximal and distal in the upper and the lower extremeties show 5/5 strength. DTR's are symmetrical in the upper and the lower extremeties. Nerve root tension signs: Negative. Heart: RRR Lungs: Clear Abdomen: Soft, non tender Spine: no tenderness with palpation of lumbar spine IMPRESSION: Some element copied from my note on 11/24/2022, which have been updated where appropriate, and all reflect my current medical decision making from today. This is a 62 year old female with history of chronic low back and hip pain in the setting of lumbar spondylosis, lumbar facet arthropathy. She comes to office today accompanied by her . Since last office visit she has undergone the following procedures: 11/24/2022 LESI L5-S1 She reports having 100% pain relief from this injection for the first 4-6 weeks. She reports having 80% pain relief at this time. She reports she has been able to walk and increase her physical activity. She was able to take her trip to [place] and was able to be active during this trip. She continues to have right sided lower back pain. This pain does not radiate down the lateral aspect of her leg. She has some slight pain today in office. She was able to undergo a massage which she reports helped with her pain. She denies any red flag symptoms including weight loss, fevers, chills, night time awakening of pain, bowel bladder incontinence, saddle anesthesia, progressive numbness or weakness. We discussed that if these symptoms should arise she should seek emergency treatment. MRI of lumbar spine that was revealing for Small shallow right central and subarticular disc protrusion at L4-5 mildly impinging on the right L5 nerve root sleeve. Mild left L5-S1 bony foraminal stenosis and epidural lipomatosis causing severe narrowing of the distal thecal sac. 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 These images were reviewed with the patient today in office She has continued rehab care assistant with Dr. Jorje Rodriges in [facility] every 2 weeks for the last several months. She also has continued to use voltaren gel, tylenol and heat. I spent a total of 30 minutes on the date of the service which included preparing to see the patient, [id number] patient care, completing clinical documentation, obtaining and/or reviewing separately obtained history, performing a medically appropriate examination, counseling and educating the patient/family/caregiver, and ordering medications, tests, or procedures. 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 11-25-2022 Miscellaneous Notes Called patient, verified name and , and asked % of pain relief and any functional improvement L5-S1 Interlaminar epidural steroid injection under fluoroscopic guidance with Dr Milian on 11/24/22. PrePain 10 PostPain 2 Patient states I have had 80 % of pain relief since my procedure and functional improvement in being able to walk easier with less pain since the procedure. Patient denies any problems or further questions at this time. Patient instructed to call Pain Management office if she has any further questions or concerns. documented in this encounter [facility] 11-23-2022 Note HNO ID: [id number] Author: Marissa Simon APRN.HUA Service: ? Author Type: Nurse Practitioner Type: Progress Notes Filed: 11/24/2022 9:14 AM Note Text: Ms. Loza a 62 year old female returns today for follow up of MRI Review, she states that symptoms are slightly worse. PAIN: Pain Yes. Location: low back, rates pain a 9 on a pain scale of 1-10. Patient describes pain as sharp,stabbing,achy,radiating numbness and tingling,duration to the present time occuring daily x 8 MEDICATIONS: Medications reviewed and verified. Current Outpatient Medications Medication Sig diclofenac (VOLTAREN) 1 % topical gel Apply 2 g to affected area four times daily. losartan (COZAAR) 100 mg tablet Take 100 mg by mouth once daily. estradiol (AUBRIE, VIVELLE-DOT) 0.05 mg/24 hr Apply 1 Patch as directed once each week. famotidine (PEPCID) 40 mg tablet Take 40 mg by mouth once daily. metoprolol succinate XL, long acting, 50 mg 24 hr tablet Take 25 mg by mouth once daily. FLUOCINOLONE ACETONIDE (FLUOCINOLONE TOPICAL) Apply to affected area as needed. nabumetone (RELAFEN) 750 mg tablet Take 750 mg by mouth twice daily. No current facility-administered medications for this visit. Patient feels that medications have not helped PREVIOUS TREATMENTS LASTING SIX WEEKS IN THE LAST SIX MONTHS Active conservative therapy lasting 6 weeks in the last six months (see below) 1. Physical therapy: No 2. Home exercise program after PT: No 3. Occupational therapy: No 4. A physician supervised home exercise program (HEP): No 5. Pantograph Setter: No Passive conservative therapy lasting 6 weeks in the last six months (see below) 1. Medical devises: No 2. Acupuncture: No 3. Tens unit: No 4. Prescription pain medication: No 5. NSAIDS: No TREATMENTS: LEFT L4-L5 and L5-S1 facet medial branch nerve radiofrequency ablation # 1 12/23/2021 (+) relief EXAM: Pulse 69 Ht 160 cm (5' 3 ) SpO2 99% BMI 37.02 kg/m? No acute distress noted, patient alert and oriented X's 3. Resistive testing proximal and distal in the upper and the lower extremeties show 5/5 strength. DTR's are symmetrical in the upper and the lower extremeties. Nerve root tension signs: Negative. Heart: RRR Lungs: Clear Abdomen: Soft, non tender Spine: Severe pain with flexion/extension, patient with paraspinal spasm on the right + SLR on the right, 4/5 D/P strength IMPRESSION: Some element copied from my note on 11/17/2022, which have been updated where appropriate, and all reflect my current medical decision making from today. This is a 62 year old female with history of chronic low back and hip pain in the setting of lumbar spondylosis, lumbar facet arthropathy. She comes to office today accompanied by her . She had MRI of lumbar spine that was revealing for Small shallow right central and subarticular disc protrusion at L4-5 mildly impinging on the right L5 nerve root sleeve. Mild left L5-S1 bony foraminal stenosis and epidural lipomatosis causing severe narrowing of the distal thecal sac. 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 These images were reviewed with the patient today in office. Since last office visit she has had significant worsening of her right radicular low back pain. She reports having discogenic pain. She has severe pain with changing positions, coughing, sneezing and having a bowel movement. This pain is interrupting her sleep. She has had stable 4/5 right D/P strength. She reports having right gluteal area and radiates down into the posterior aspect of her calf. She reports at times having tingling and tightness in this area. She also reports having right foot weakness and has been having issues with walking. She denies any red flag symptoms including weight loss, fevers, chills, night time awakening of pain, bowel bladder incontinence, saddle anesthesia, progressive numbness or weakness. We discussed that if these symptoms should arise she should seek emergency treatment. She has continued rehab care assistant with Dr. Jorje Rodriges in [facility] every 2 weeks for the last several months. She also has continued to use voltaren gel, tylenol and heat. I spent a total of 30 minutes on the date of the service which included preparing to see the patient, [id number] patient care, completing clinical documentation, obtaining and/or reviewing separately obtained history, performing a medically appropriate examination, counseling and educating the patient/family/caregiver, and ordering medications, tests, or procedures. PLAN: Right lumbar radiculopathy (primary encounter diagnosis) Discogenic pain Lumbar spondylosis MRI and patient's office visit was discussed with Dr. Finn he recommend Right TFESIL L4-L5, L5-S1 and Tramadol 50mg PO BID as needed to help with her severe pain for the next week Reviewed red flag symptoms to watch for Consider surgical evaluation if pain not impro (more content not included)... [facility] 11-23-2022 Miscellaneous Notes right TFESI L4-L5, L5-S1 MARA LOZA [id number] RUKHSANA 11/24 -THINNERS -DM Patient was made aware that the [facility] will call the day prior to scheduled procedure between the hours of 12 and 4 pm to advise patient of arrival time the day of procedure. Patient was advised that they will require a motor vehicle escort driver on the day of their procedure, and procedure will be cancelled if they arrive without a responsible adult to transport them home from the procedure. Patient advised that all medication management instructions prior to procedure will need addressed by clinical staff. Patient expresses understanding with no further questions or concerns at this time. Patient transferred to [facility] scheduling line to authorize procedure, or greencoat appointment made. documented in this encounter [facility] 11-23-2022 Instructions Marissa Simon APRN.CNP - 11/23/2022 2:20 PM EDT Please watch for the following red flag symptoms: -weight loss, fevers -chills, night time awakening of pain - bowel bladder incontinence (difficulty holding your urine or stool) -saddle anesthesia (numbness and tingling in your groin area) - progressive numbness or weakness. If these symptoms should arise you should seek emergency treatment. documented in this encounter [facility] 11-23-2022 History of Presen t illness Narrative Ms. Loza a 62 year old female returns today for follow up of MRI Review, she states that symptoms are slightly worse. PAIN: Pain Yes. Location: low back, rates pain a 9 on a pain scale of 1-10. Patient describes pain as sharp,stabbing,achy,radiating numbness and tingling,duration to the present time occuring daily x 8 MEDICATIONS: Medications reviewed and verified. Current Outpatient Medications Medication Sig diclofenac (VOLTAREN) 1 % topical gel Apply 2 g to affected area four times daily. losartan (COZAAR) 100 mg tablet Take 100 mg by mouth once daily. estradiol (AUBRIE, VIVELLE-DOT) 0.05 mg/24 hr Apply 1 Patch as directed once each week. famotidine (PEPCID) 40 mg tablet Take 40 mg by mouth once daily. metoprolol succinate XL, long acting, 50 mg 24 hr tablet Take 25 mg by mouth once daily. FLUOCINOLONE ACETONIDE (FLUOCINOLONE TOPICAL) Apply to affected area as needed. nabumetone (RELAFEN) 750 mg tablet Take 750 mg by mouth twice daily. No current facility-administered medications for this visit. Patient feels that medications have not helped PREVIOUS TREATMENTS LASTING SIX WEEKS IN THE LAST SIX MONTHS Active conservative therapy lasting 6 weeks in the last six months (see below) 1. Physical therapy: No 2. Home exercise program after PT: No 3. Occupational therapy: No 4. A physician supervised home exercise program (HEP): No 5. Pantograph Setter: No Passive conservative therapy lasting 6 weeks in the last six months (see below) 1. Medical devises: No 2. Acupuncture: No 3. Tens unit: No 4. Prescription pain medication: No 5. NSAIDS: No TREATMENTS: LEFT L4-L5 and L5-S1 facet medial branch nerve radiofrequency ablation # 1 12/23/2021 (+) relief EXAM: Pulse 69 Ht 160 cm (5' 3 ) SpO2 99% BMI 37.02 kg/m No acute distress noted, patient alert and oriented X's 3. Resistive testing proximal and distal in the upper and the lower extremeties show 5/5 strength. DTR's are symmetrical in the upper and the lower extremeties. Nerve root tension signs: Negative. Heart: RRR Lungs: Clear Abdomen: Soft, non tender Spine: Severe pain with flexion/extension, patient with paraspinal spasm on the right + SLR on the right, 4/5 D/P strength IMPRESSION: Some element copied from my note on 11/17/2022, which have been updated where appropriate, and all reflect my current medical decision making from today. This is a 62 year old female with history of chronic low back and hip pain in the setting of lumbar spondylosis, lumbar facet arthropathy. She comes to office today accompanied by her . She had MRI of lumbar spine that was revealing for Small shallow right central and subarticular disc protrusion at L4-5 mildly impinging on the right L5 nerve root sleeve. Mild left L5-S1 bony foraminal stenosis and epidural lipomatosis causing severe narrowing of the distal thecal sac. 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 These images were reviewed with the patient today in office. Since last office visit she has had significant worsening of her right radicular low back pain. She reports having discogenic pain. She has severe pain with changing positions, coughing, sneezing and having a bowel movement. This pain is interrupting her sleep. She has had stable 4/5 right D/P strength. She reports having right gluteal area and radiates down into the posterior aspect of her calf. She reports at times having tingling and tightness in this area. She also reports having right foot weakness and has been having issues with walking. She denies any red flag symptoms including weight loss, fevers, chills, night time awakening of pain, bowel bladder incontinence, saddle anesthesia, progressive numbness or weakness. We discussed that if these symptoms should arise she should seek emergency treatment. She has continued rehab care assistant with Dr. Jorje Rodirges in [facility] every 2 weeks for the last several months. She also has continued to use voltaren gel, tylenol and heat. I spent a total of 30 minutes on the date of the service which included preparing to see the patient, [id number] patient care, completing clinical documentation, obtaining and/or reviewing separately obtained history, performing a medically appropriate examination, counseling and educating the patient/family/caregiver, and ordering medications, tests, or procedures. PLAN: Right lumbar radiculopathy (primary encounter diagnosis) Discogenic pain Lumbar spondylosis MRI and patient's office visit was discussed with Dr. Finn he recommend Right TFESIL L4-L5, L5-S1 and Tramadol 50mg PO BID as needed to help with her severe pain for the next week Reviewed red flag symptoms to watch for Consider surgical evaluation if pain not improved with injection Dr. Milian is able to perform injection tomorrow, discussed patient's case and MRI findings with him RTC following injection Marissa Simon APRN.CNP November 24, 2022 documented in this encounter [facility] 11-17-2022 Instructions Marissa Simon APRN.CNP - 11/17/2022 3:14 PM EDT Please watch for the following red flag symptoms: -weight loss, fevers -chills, night time awakening of pain - bowel bladder incontinence (difficulty holding your urine or stool) -saddle anesthesia (numbness and tingling in your groin area) - progressive numbness or weakness. If these symptoms should arise you should seek emergency treatment. documented in this encounter [facility] 11-17-2022 History of Presen t illness Narrative Ms. Loza a 61 year old female returns today for follow up of left hip, she states that symptoms have not changed. PAIN: Pain Yes. Location: right hip radiating down right leg, rates pain a 3-10 on a pain scale of 1-10. Patient describes pain as sharp and aching, duration to the present time occuring daily x 4. MEDICATIONS: Medications reviewed and verified. Current Outpatient Medications Medication Sig diclofenac (VOLTAREN) 1 % topical gel Apply 2 g to affected area four times daily. nabumetone (RELAFEN) 750 mg tablet Take 750 mg by mouth twice daily. losartan (COZAAR) 100 mg tablet Take 100 mg by mouth once daily. estradiol (AUBRIE, VIVELLE-DOT) 0.05 mg/24 hr Apply 1 Patch as directed once each week. famotidine (PEPCID) 40 mg tablet Take 40 mg by mouth once daily. metoprolol succinate XL, long acting, 50 mg 24 hr tablet Take 25 mg by mouth once daily. FLUOCINOLONE ACETONIDE (FLUOCINOLONE TOPICAL) Apply to affected area as needed. No current facility-administered medications for this visit. Patient feels that medications have not used PREVIOUS TREATMENTS LASTING SIX WEEKS IN THE LAST SIX MONTHS Active conservative therapy lasting 6 weeks in the last six months (see below) 1. Physical therapy: No 2. Home exercise program after PT: No 3. Occupational therapy: No 4. A physician supervised home exercise program (HEP): No 5. Pantograph Setter: Yes Passive conservative therapy lasting 6 weeks in the last six months (see below) 1. Medical devises: No 2. Acupuncture: No 3. Tens unit: No 4. Prescription pain medication: No 5. NSAIDS: No TREATMENTS: LEFT L4-L5 and L5-S1 facet medial branch nerve radiofrequency ablation # 1 under fluoroscopic guidance. On 12/23/2021 100 % Left hip GTB injection # 1. On 06/19/2021 Pantograph Setter- gave relief Voltaren Gel- gave relief EXAM: Pulse 72 Ht 160 cm (5' 3 ) SpO2 99% BMI 37.02 kg/m No acute distress noted, patient alert and oriented X's 3. Resistive testing proximal and distal in the upper and the lower extremeties show 5/5 strength. DTR's are symmetrical in the upper and the lower extremeties. Nerve root tension signs: Negative. Heart: RRR Lungs: Clear Abdomen: Soft, non tender Spine: tenderness with palpation of lumbar spine, + SLR, 4/5 right D/p strength IMPRESSION: Some element copied from my note on 02/05/2022, which have been updated where appropriate, and all reflect my current medical decision making from today. This is a 61 year old female with history of chronic low back and hip pain in the setting of lumbar spondylosis, lumbar facet arthropathy. She reports having new right radicular low back pain. This pain starts in her right gluteal area and radiates down into the posterior aspect of her calf. She reports at times having tingling and tightness in this area. She also reports having right foot weakness and has been having issues with walking. She denies any red flag symptoms including weight loss, fevers, chills, night time awakening of pain, bowel bladder incontinence, saddle anesthesia, progressive numbness or weakness. We discussed that if these symptoms should arise she should seek emergency treatment. She has continued rehab care assistant with Dr. Jorje Rodriges in [facility] every 2 weeks for the last several months. She also has continued to use voltaren gel, tylenol and heat. She has had MRI of lumbar spine that was revealing for Mild lower lumbar spondylosis notable for mild right subarticular zone narrowing at L4-5, and for mild left subarticular zone and left foraminal narrowing at L5-S1. There is no high-grade spinal canal stenosis. I spent a total of 30 minutes on the date of the service which included preparing to see the patient, [id number]-[id number] patient care, completing clinical documentation, obtaining and/or reviewing separately obtained history, performing a medically appropriate examination, counseling and educating the patient/family/caregiver, and ordering medications, tests, or procedures. PLAN: Radiculopathy of lumbar region (primary encounter diagnosis) Lumbar disc herniation Discogenic lumbar pain Right foot drop PLAN: - MRI of lumbar spine - Consider Right TFESI L5-S1 - Consider spine surgery consult - Tylenol 500-1000mg every 8 hours as needed - Reviewed red flag symptoms to watch for - RTC following injection Marissa Simon APRN.HUA November 17, 2022 documented in this encounter [facility] 05-19-2022 Evaluation + Plan note Diagnostic Tests [facility] ([facility]) 05/19/22 [facility] 05-19-2022 Hospital Discharg e instructions Patient Education 05/19/2022 08:13:31 Cancer Screening for Women Cancer Screening for Women A cancer screening is a test or exam that checks for cancer. Your health care provider will recommend specific cancer screenings based on your age, personal history, and family history of cancer. Work with your health care provider to create a cancer screening schedule that protects your health. Why is cancer screening done? Cancer screening is done to look for cancer in the very early stages, before it spreads and becomes harder to treat and before you would start to notice symptoms. Finding cancer early improves the chances of successful treatment. It may save your life. Who should be screened for cancer? All women should be screened for certain cancers, including breast cancer, cervical cancer, and skin cancer. Your health care provider may recommend screenings for other types of cancer if: You had cancer before. You have a family member with cancer. You have abnormal genes that could increase the risk of cancer. You have risk factors for certain cancers, such as smoking. When you should be screened for cancer depends on: Your age. Your medical history and your family's medical history. Certain lifestyle factors, such as smoking. Environmental exposure, such as to asbestos. What are some common cancer screenings? Breast cancer Breast cancer screening is done with a test that takes images of breast tissue (mammogram). Here are some screening guidelines: When you are age 40 44, you will be given the choice to start having mammograms. When you are age 45 54, you should have a mammogram every year. You may start having mammograms before age 45 if you have risk factors for breast cancer, such as having an immediate family member with breast cancer. When you are age 55 or older, you should have a mammogram every 1 2 years for as long as you are in good health and have a life expectancy of 10 years or more. It is important to know what your breasts look and feel like so you can report any changes to your health care provider. Cervical cancer Cervical cancer screening is done with a Pap test. This testchecks for abnormalities, including the virus that causes cervical cancer (human papillomavirus, or HPV). To perform the test, a health care provider takes a swab of cervical cells during a pelvic exam. Screening for cervical cancer with a Pap test should start at age 21. Here are some screening guidelines: When you are age 21 29, you should have a Pap test every 3 years. When you are age 30 65, you should have a Pap test and HPV test every 5 years or have a Pap test every 3 years. You may be screened for cervical cancer more often if you have risk factors for cervical cancer. If your Pap tests are abnormal, you may have an HPV test. If you have had the HPV vaccine, you will still be screened for cervical cancer and follow normal screening recommendations. You do not need to be screened for cervical cancer if any of the following apply to you: You are older than age 65 and you have not had a serious cervical precancer or cancer in the last 20 years. Your cervix and uterus have been removed and you have never had cervical cancer or precancerous cells. Endometrial cancer There is no standard screening test for endometrial cancer, but the cancer can be detected with: A test of a sample of tissue taken from the lining of the uterus (endometrial tissue biopsy). A vaginal ultrasound. Pap tests. If you are at increased risk for endometrial cancer, you may need to have these tests more often than normal. You are at increased risk if: You have a family history of ovarian, uterine, or colon cancer. You are taking tamoxifen, a drug that is used to treat breast cancer. You have certain types of colon cancer. If you have reached menopause, it is especially important to talk with your health care provider about any vaginal bleeding or spotting. Screening for endometrial cancer is not recommended for women who do not have symptoms of the cancer, such as vaginal bleeding. Colorectal cancer All adults should have screening for colorectal cancer starting at age 50 and continuing until age 75. Your health care provider may recommend screening at age 45. You will have tests every 1 10 years, depending on your results and the type of screening test. If you have a family history of colon or rectal cancer or other risk factors, you may need to start having screenings earlier. Talk with your health care provider about which screening test is right for you and how often you should be screened. Colorectal cancer screening looks for cancer or for growths called polyps that often form before cancer starts. Tests to look for cancer or polyps include: Colonoscopy or flexible sigmoidoscopy. For these procedures, a flexible tube with a small camera is inserted into the rectum. CT colonography. This test uses X-rays and a contrast dye to check the colon for polyps. If a polyp is found, you may need to have a colonoscopy so the polyp can be located and removed. Tests to look for cancer in the stool (feces) include: Guaiac-based fecal occult blood test (FOBT). This test detects blood in stool. It can be done at home with a kit. Fecal immunochemical test (FIT). This test detects blood in stool. For this test, you will need to collect stool samples at home. Stool DNA test. This test looks for blood in stool and any changes in DNA that can lead to colon cancer. For this test, you will need to collect a stool sample at home and send it to a lab. Skin cancer Skin cancer screening is done by checking the skin for unusual moles or spots and any changes in existing moles. Your health care provider should check your skin for signs of skin cancer at every physical exam. You should check your skin every month and tell your health care provider right away if anything looks unusual. Women with a karyrh-ppoh-phtgnq risk for skin cancer may want to see a skinner pelts (patient account liaison) for an annual body check. Lung cancer Lung cancer screening is done with a CT scan that looks for abnormal cells in the lungs. Discuss lung cancer screening with your health care provider if you are 55 74 years old and if any of the following apply to you: You currently smoke. You used to smoke heavily. You have a smoking history of 1 pack a day for 30 years or 2 packs a day for 15 years. You have quit smoking within the past 15 years. If you smoke heavily or if you used to smoke, you may need to be screened every year. Where to find more information National Cancer [place]: https://www.cancer.gov/about-ca ncer/screening Centers for Disease Control and Prevention: https://www.cdc.gov/cancer/dcpc /prevention/screening.htm [facility]: https://www.[facility]-eri[facility].gov/sc vimsdcn-gxoyf-vgl-vaccines/scre qpboy-ppnup-jwh-women Contact a health care provider if: You have concerns about any signs or symptoms of cancer, such as: ?Moles that have an unusual shape or color. ?Changes in existing moles. ?A sore on your skin that does not heal. ?Blood in your stool. ?Fatigue that does not go away. ?Frequent pain or cramping in your abdomen. ?Coughing, or coughing up blood. ?Losing weight without trying. ?Lumps or other changes in your breasts. ?Vaginal bleeding, spotting, or changes in your periods. Summary Be aware of and watch for signs and symptoms of cancer, especially symptoms of breast cancer, cervical cancer, endometrial cancer, colorectal cancer, skin cancer, and lung cancer. Early detection of cancer with cancer screening may save your life. Talk with your health care provider about your specific cancer risks. Work together with your health care provider to create a cancer screening plan that is right for you. This information is not intended to replace advice given to you by your health care provider. Make sure you discuss any questions you have with your health care provider. Document Released: 03/31/2017 Document Revised: 10/24/2019 Document Reviewed: 03/31/2017 [employer] Patient Education 2019 [employer] Follow Up Care 05/06/2022 10:17:20 With:ARJUN KULKARNI, Bladimir Koenig, URL Address: [facility] [address] , [place] [id number]- When:Within 3 Year(s) [facility] 02-08-2022 Miscellaneous Notes Called patient, and notified by voice mail of message below from Marissa Simon CNP and advised that she can call back if she would like an order placed for Ortho eval. Please let patient know xray of hip as reported as normal. We could consider ortho evaluation for her continued issues with bursitis. Marissa Simon APRN.CNP documented in this encounter [facility] 02-04-2022 History of Presen t illness Narrative Radiology Service Progress Note PATIENT NAME: Mara Loza DATE OF SERVICE: February 04, 2022 TIME: 3:58 PM PATIENT IDENTITY VERIFICATION COMPLETED USING TWO (2) IDENTIFIERS: Name and Date of confirmed by patient verbally. FALL SCREENING: Has the patient had 2 falls in the last year or 1 fall with injury or currently using an Ambulatory Assistive Device (Walker, Cane, Wheelchair, Crutches, etc.)? No PATIENT GENDER DATA: Female. status: : No status: NO. PATIENT RELEVANT IMPLANT DATA REVIEWED: Not Applicable RADIOLOGY DEPARTMENT: General X-ray: Exam(s) Completed: Pelvis X-Ray: Pelvis with Hip Left PERIPHERAL IV DATA: Not applicable SIGNED BY: RT Preston(R) February 04, 2022 3:58 PM documented in this encounter [facility] 02-04-2022 History of Presen t illness Narrative Ms. Loza a 61 year old female returns today for follow up of post procedure, she states that symptoms have improved for the low back . PAIN: Pain Yes. Location: left hip, rates pain a 2 on a pain scale of 1-10. Patient describes pain as aching and shooting with certain movement, duration to the present time occuring daily . MEDICATIONS: Medications reviewed and verified. Current Outpatient Medications Medication Sig losartan (COZAAR) 100 mg tablet Take 100 mg by mouth once daily. estradiol (AUBRIE, VIVELLE-DOT) 0.05 mg/24 hr Apply 1 Patch as directed once each week. famotidine (PEPCID) 40 mg tablet Take 40 mg by mouth once daily. metoprolol succinate XL, long acting, 50 mg 24 hr tablet Take 25 mg by mouth once daily. FLUOCINOLONE ACETONIDE (FLUOCINOLONE TOPICAL) Apply to affected area as needed. diclofenac (VOLTAREN) 1 % topical gel Apply 2 g to affected area four times daily. nabumetone (RELAFEN) 750 mg tablet Take 750 mg by mouth twice daily. No current facility-administered medications for this visit. Patient feels that medications have helped a little PREVIOUS TREATMENTS LASTING SIX WEEKS IN THE LAST SIX MONTHS Active conservative therapy lasting 6 weeks in the last six months (see below) 1. Physical therapy: No 2. Home exercise program after PT: No 3. Occupational therapy: No 4. A physician supervised home exercise program (HEP): No 5. Pantograph Setter: Currently going Passive conservative therapy lasting 6 weeks in the last six months (see below) 1. Medical devises: No 2. Acupuncture: No 3. Tens unit: No 4. Prescription pain medication: No 5. NSAIDS: No TREATMENTS: LEFT L4-L5 and L5-S1 facet medial branch nerve radiofrequency ablation # 1 under fluoroscopic guidance. On 12/23/2021 100 % Left hip GTB injection # 1. On 06/19/2021 Pantograph Setter Voltaren Gel EXAM: Pulse 80 Ht 160 cm (5' 3 ) SpO2 97% BMI 37.02 kg/m No acute distress noted, patient alert and oriented X's 3. Resistive testing proximal and distal in the upper and the lower extremeties show 5/5 strength. DTR's are symmetrical in the upper and the lower extremeties. Nerve root tension signs: Negative. Heart: RRR Lungs: Clear Abdomen: Soft, non tender Spine: tenderness with palpation of lumbar spine Left GTB tenderness with reproducible pain with internal/external rotation IMPRESSION: Some element copied from my note on 08/13/2021, which have been updated where appropriate, and all reflect my current medical decision making from today. This is a 61 year old female with history of bilateral sacroilitis, low back pain in setting of lumbar facet arthropathy, and hip pain. She is an established patient of Dr. Finn's. Since last office visit patient has undergone the following procedures: 12/23/2021 LEFT L4-L5 and L5-S1 facet medial branch nerve radiofrequency ablation # 1 under fluoroscopic guidance. 11/09/2021 Right L4-L5 and L5-S1 facet medial branch nerve radiofrequency ablation # 1 under fluoroscopic guidance. She reports this offered her significant relief of her lower back pain. She reports she has been able to increase her activity. Since last office visit she continues to have left hip bursitis and left hip pain. This pain is worsened with prolonged sitting and then getting up from a chair. was revived and later taken to [facility]. 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 No osseous erosions about the SI joints. She has had prior MRI of lumbar spine that was revealing for Mild lower lumbar spondylosis notable for mild right subarticular zone narrowing at L4-5, and for mild left subarticular zone and left foraminal narrowing at L5-S1. There is no high-grade spinal canal stenosis. I spent a total of 30 minutes on the date of the service which included preparing to see the patient, [id number] patient care, completing clinical documentation, obtaining and/or reviewing separately obtained history and performing a medically appropriate examination. PLAN: Xray of left hip Consider ortho consult Will call patient with further recommends after reviewing her xray Marissa Simon APRN.HUA February 04, [address] encounter [facility] 12-25-2021 Miscellaneous Notes DATE OF SERVICE: 12/23/21 PATIENT'S PHONE NUMBERS: [phone] (home) [phone] (work) PROVIDER: Dr. Finn PROCEDURE: LEFT L4-L5 and L5-S1 facet medial branch nerve radiofrequency ablation # 1 PrePain 3 PostPain 2 Spoke directly with patient Patient states that they are 100% better. Pt is able to get in/out of husbands truck with no pain. Patient claims to have no problems. Slight soreness at site. PLAN: She is to return to the clinic in 6 weeks for followup. Pt scheduled appt on 02/04/22. (HERMINIO) documented in this encounter [facility] 10-21-2021 Miscellaneous Notes Right L4-L5 and L5-S1 facet Radiofrequency Ablation MARA LOZA [id number] Left L4-L5 and L5-S1 facet Radiofrequency Ablation MARA LOZA [id number] DR. FINN 11/09 [place] [facility] 12/18 IN [facility] Patient was made aware that the [facility] will call the day prior to scheduled procedure between the hours of 12 and 4 pm to advise patient of arrival time the day of procedure. Patient was advised that they will require a motor vehicle escort driver on the day of their procedure, and procedure will be cancelled if they arrive without a responsible adult to transport them home from the procedure. Patient advised that all medication management instructions prior to procedure will need addressed by clinical staff. Patient expresses understanding with no further questions or concerns at this time. Patient transferred to [facility] scheduling line to authorize [facility], [facility]. Called patient, verified name and , and asked % of pain relief and any functional improvement since Bilateral L4-L5 and L5-S1 facet block # [address] Finn on 10/16/21. PrePain 3 PostPain 3 Patient states I had 100 % of pain relief that has lasted since my procedure on 10/16/21 except if I'm sitting too long and functional improvement in being able to stand and walk easier with less pain since the procedure. Patient denies any problems or further questions at this time. Patient instructed to call Pain Management office if she has any further questions or concerns. Plan: She is to return to clinic - option for RFA if she has > 80% pain relief. Patient states I would like to go ahead and schedule the RFA. I would like to start with the right side first as that side is a little worse. Please call patient and assist with scheduling Right L4-L5 and L5-S1 facet Radiofrequency Ablation and then Left L4-L5 and L5-S1 facet Radiofrequency Ablation 2-3 weeks later. documented in this encounter [facility] 10-16-2021 Nurse Note Nursing Progress Note Patient Name: Mara Loza Patient Location: [id number]/[id number] Daily Note:Push/pulls equal and strong bilaterally. Vss. Pain 3/10 to low back. This note was completed by: Freda Pacheco documented in this encounter [facility] 10-16-2021 History and physical note UPDATED PROCEDURAL SEDATION HISTORY AND PHYSICAL EXAMINATION SERVICE DATE: 10/16/2021 SERVICE TIME: 2.23 pm PHYSICAL EXAM MUST BE COMPLETED ON ADMISSION PROCEDURE: facet Procedure Indications: pain The History and Physical (completed in the past 30 days) has been reviewed and the patient has been examined. The contents accurately reflect the patient's condition with the following additions or revisions since the H&P was completed. ASA Class: Examination indicates no changes. AIRWAY: wnl LUNGS: clear CARDIAC: , rrr Provisional Diagnosis/Treatment Plan: This H&P can be found in the attached. SIGNATURE: Lyndsey Finn MD PATIENT NAME: Mara Loza DATE: October 16, 2021 TIME: 2:23 PM Images from the original note were not included. LOCAL PROCEDURE HISTORY & PHYSICAL EXAM SERVICE DATE: 10/16/2021 SERVICE TIME: 2:02 PM Provisional Diagnosis/Treatment Plan: BLOCK JOINT FACET LUMBAR W/ C-ARM BILATERAL - Bilateral Subjective HPI: This is a 60 year old female who presents with lower back pain. MEDICATIONS: Prior to Admission medications as of 08/13/21 1515 Medication Sig Last Dose Taking losartan (COZAAR) 100 mg tablet Take 100 mg by mouth once daily. 10/15/2021 at Unknown time Yes metoprolol succinate XL, long acting, 50 mg 24 hr tablet Take 25 mg by mouth once daily. 10/15/2021 at Unknown time Yes diclofenac (VOLTAREN) 1 % topical gel Apply 2 g to affected area four times daily. at PRN nabumetone (RELAFEN) 750 mg tablet Take 750 mg by mouth twice daily. estradiol (AUBRIE, VIVELLE-DOT) 0.05 mg/24 hr Apply 1 Patch as directed once each week. famotidine (PEPCID) 40 mg tablet Take 40 mg by mouth once daily. FLUOCINOLONE ACETONIDE (FLUOCINOLONE TOPICAL) Apply to affected area as needed. at PRN ALLERGIES Allergen Reactions Cefuroxime Vomiting severe vomiting Ciprofloxacin Rash Penicillins Unknown Objective PHYSICAL EXAM: The remainder of the physical exam is noncontributory. GENERAL: Alert, no distress, cooperative LUNGS: Lungs clear to auscultation, Good diaphragmatic excursion CARDIAC: Normal S1 and S2; no rubs, murmurs, or gallops BP 145/83 Pulse 76 Temp 36.9 C (98.5 F) (Temporal) Resp 18 SpO2 99% PAIN ASSESSMENT: PAIN EVALUATION 10/16/2021 1340 Pain Level: 2 Pain Location: Back-Lower BILATERAL LOWER BACK Description: Aching;Burning Intervention/Comfort measure: Relaxation Assessment/Plan Active Problems: Sacroiliitis (HCC) [M46.1] Lumbar spondylosis [M47.816] Medication and Non-Pharmacologic VTE Prophylaxis/Anticoagulants VTE Prophylaxis: NA SIGNATURE: Arina Gonzalez PA-C PATIENT NAME: Mara Loza DATE: October 16, 2021 TIME: 2:02 PM documented in this encounter [facility] 10-16-2021 Miscellaneous Notes Patient Name Medical Record # Mara Loza [id number] Date of : 1960 Admit Date: October 16, 2021 Sex / Age: female/60 year old Discharge Date: October 16, 2021 Date: October 16, 2021 Attending Physician: Lyndsey Finn MD Service: Pain Managment LOG ID: [id number] Surgery/Procedure Date: 10/16/2021 Incision/Procedure Start Time: 2:27 PM Incision Close/Procedure End Time: 2:32 PM PREOPERATIVE DIAGNOSIS: Lumbosacral Spondylosis without Myelopathy and Facet Syndrome POSTOPERATIVE DIAGNOSIS: Same. NAME OF OPERATION: Bilateral L4-L5 and L5-S1 facet block # 2 under fluoroscopic guidance. 90% relief with mnbb #1 SURGEON: Lyndsey Finn MD BAR MACHINE OPERATOR MULTIPLE SPINDLE: None. ANESTHESIA: Local INFORMED CONSENT: Risks, benefits, and alternatives were discussed with the patient in detail. She verbalized understanding and agreed to proceed. PROCEDURE: The patient was brought to the fluoroscopy OR suite. Intravenous access was obtained prior to the procedure.The patient was positioned prone on the fluoroscopy table. Continuous hemodynamic monitoring was achieved including blood pressure, EKG, and pulse oximetry. Intravenous sedation was not administered. . The area of the lumbar spine was prepped well with povidone-iodine x 3 and draped into a sterile field. Fluoroscopy was used to identify the location of median branch nerves at the junctions of the superior articular processes and the transverse processes of Bilateral L3, L4 and L5 respectively. A 25 -gauge, 3.5 -inch spinal needle was slowly inserted and advanced at each level, on each side, using AP and Oblique fluoroscopic imaging for needle guidance. Negative aspiration of blood and CSF was confirmed. A combination of 1 cc of bupivacaine 0.5% mixed with 5 mg of Triamcinolone was injected at each level, on each side, for a total of 30 mg of Triamcinolone. The needles were removed. Bleeding was nil. A sterile dressing was applied. The patient was taken to the recovery room in stable condition. Complications: None. Estimated Blood Loss: None. Drains: None. Implantable Device: None. Specimen: None. ILyndsey MD, performed the entire procedure. ASSESSMENT AND PLAN: Mara Loza is status post Bilateral L4 and L5 facet nerve block. She is to return to clinic - option for RFA if she has > 80% pain relief. Postoperative instructions were given. She voiced understanding, and she was discharged to home in stable condition. Lyndsey Finn MD Pain Management October 16, [address] encounter [facility] 08-15-2020 History of Presen t illness Narrative Radiology Service Progress Note PATIENT NAME: Mara Loza DATE OF SERVICE: August 15, 2020 TIME: 4:08 PM PATIENT IDENTITY VERIFICATION COMPLETED USING TWO (2) IDENTIFIERS: Name and Date of confirmed by patient verbally. FALL SCREENING: Has the patient had 2 falls in the last year or 1 fall with injury or currently using an Ambulatory Assistive Device (Walker, Cane, Wheelchair, Crutches, etc.)? No PATIENT GENDER DATA: Female. status: : No status: NO. PATIENT RELEVANT IMPLANT DATA REVIEWED: Yes RADIOLOGY DEPARTMENT: MR; Exam(s) Completed: Spine: Lumbar spine PERIPHERAL IV DATA: Not applicable SIGNED BY: Oriana Dailey August 15, 2020 4:08 PM documented in this encounter [facility] 08-14-2020 History of Presen t illness Narrative Radiology Service Progress Note PATIENT NAME: Mara Loza DATE OF SERVICE: August 14, 2020 TIME: 11:36 AM PATIENT IDENTITY VERIFICATION COMPLETED USING TWO (2) IDENTIFIERS: Name and Date of confirmed by patient verbally. FALL SCREENING: Has the patient had 2 falls in the last year or 1 fall with injury or currently using an Ambulatory Assistive Device (Walker, Cane, Wheelchair, Crutches, etc.)? No PATIENT GENDER DATA: Female. status: : No status: NO. PATIENT RELEVANT IMPLANT DATA REVIEWED: Not Applicable RADIOLOGY DEPARTMENT: General X-ray: Exam(s) Completed: Pelvis X-Ray: Pelvis with Hip Bilateral PERIPHERAL IV DATA: Not applicable SIGNED BY: RT Fatimah August 14, 2020 11:36 AM documented in this encounter [facility] 05-18-2016 History of Past i llness Narrative Problem Noted Date Resolved Date Transient alteration of awareness 05/18/2016 05/26/2019 documented as of this encounter (statuses as of 10/17/2021) [facility] History of Past illness Narrative* Problem Noted Date Resolved Date Transient alteration of awareness 05/18/2016 05/26/2019 documented as of this encounter (statuses as of 10/21/2021) [address]2016 History of Past illness Narrative* Problem Noted Date Resolved Date Transient alteration of awareness 05/18/2016 05/26/2019 documented as of this encounter (statuses as of 12/25/2021) [facility] History of Past illness Narrative* Problem Noted Date Resolved Date Transient alteration of awareness 05/18/2016 05/26/2019 documented as of this encounter (statuses as of 02/04/2022) [facility] History of Past illness Narrative* Problem Noted Date Resolved Date Transient alteration of awareness 05/18/2016 05/26/2019 documented as of this encounter (statuses as of 02/08/2022) [facility] History of Past illness Narrative* Problem Noted Date Resolved Date Transient alteration of awareness 05/18/2016 05/26/2019 documented as of this encounter (statuses as of 11/18/2022) [facility] History of Past illness Narrative* Problem Noted Date Resolved Date Transient alteration of awareness 05/18/2016 05/26/2019 documented as of this encounter (statuses as of 11/24/2022) [address]2016 History of Past illness Narrative* Problem Noted Date Resolved Date Transient alteration of awareness 05/18/2016 05/26/2019 documented as of this encounter (statuses as of 11/24/2022) [address]01[address]2016 History of Past illness Narrative* Problem Noted Date Resolved Date Transient alteration of awareness 05/18/2016 05/26/2019 documented as of this encounter (statuses as of 11/25/2022) [address]2016 History of Past illness Narrative* Problem Noted Date Diagnosed Date Resolved Date Transient alteration of awareness 05/18/2016 05/26/2019 documented as of this encounter (statuses as of 01/28/2023) [address]2016 History of Past illness Narrative* Problem Noted Date Diagnosed Date Resolved Date Transient alteration of awareness 05/18/2016 05/26/2019 documented as of this encounter (statuses as of 02/25/2023) [address]2016 History of Past illness Narrative* Problem Noted Date Diagnosed Date Resolved Date Transient alteration of awareness 05/18/2016 05/26/2019 documented as of this encounter (statuses as of 02/25/2023) [address]2016 History of Past illness Narrative* Problem Noted Date Diagnosed Date Resolved Date Transient alteration of awareness 05/18/2016 05/26/2019 documented as of this encounter (statuses as of 08/18/2023) [address]2016 History of Past illness Narrative* Problem Noted Date Diagnosed Date Resolved Date Transient alteration of awareness 05/18/2016 05/26/2019 documented as of this encounter (statuses as of 08/19/2023) [address]2016 History of Past illness Narrative* Problem Noted Date Diagnosed Date Resolved Date Transient alteration of awareness 05/18/2016 05/26/2019 documented as of this encounter (statuses as of 09/08/2023) [address]2016 History of Past illness Narrative* Problem Noted Date Diagnosed Date Resolved Date Transient alteration of awareness 05/18/2016 05/26/2019 documented as of this encounter (statuses as of 09/30/2023) [address]2016 History of Past illness Narrative* Problem Noted Date Diagnosed Date Resolved Date Transient alteration of awareness 05/18/2016 05/26/2019 documented as of this encounter (statuses as of 10/06/2023) [address]2016 History of Past illness Narrative* Problem Noted Date Diagnosed Date Resolved Date Transient alteration of awareness 05/18/2016 05/26/2019 documented as of this encounter (statuses as of 10/07/2023) [address]2016 History of Past illness Narrative* Problem Noted Date Diagnosed Date Resolved Date Transient alteration of awareness 05/18/2016 05/26/2019 documented as of this encounter (statuses as of 10/28/2023) [address]2016 History of Past illness Narrative* Problem Noted Date Diagnosed Date Resolved Date Transient alteration of awareness 05/18/2016 05/26/2019 documented as of this encounter (statuses as of 11/04/2023) [facility] History of Past illness Narrative* Problem Noted Date Diagnosed Date Resolved Date Transient alteration of awareness 05/18/2016 05/26/2019 documented as of this encounter (statuses as of 10/21/2023) [facility] note* Diagnosis Sacroiliitis (HCC)- Primary Sacroiliitis, not elsewhere classified Lumbar spondylosis Lumbosacral spondylosis without myelopathy Sacroiliitis (HCC) Sacroiliitis, not elsewhere classified Lumbar spondylosis Lumbosacral spondylosis without myelopathy [facility] Diagnosis Trochanteric bursitis of left hip- Primary Enthesopathy of hip region Left hip pain Pain in joint, pelvic region and thigh Facet arthropathy, lumbosacral Lumbosacral spondylosis without myelopathy documented in this encounter [facility] note* Diagnosis Radiculopathy of lumbar region- Primary Thoracic or lumbosacral neuritis or radiculitis, unspecified Lumbar disc herniation Displacement of lumbar intervertebral disc without myelopathy Discogenic lumbar pain Right foot drop Other acquired deformity of ankle and foot [facility] Diagnosis Radiculopathy of lumbar region- Primary Thoracic or lumbosacral neuritis or radiculitis, unspecified Lumbar disc herniation Displacement of lumbar intervertebral disc without myelopathy Discogenic lumbar pain Right foot drop Other acquired deformity of ankle and foot [facility] Diagnosis Right lumbar radiculopathy- Primary Thoracic or lumbosacral neuritis or radiculitis, unspecified Discogenic pain Backache, unspecified Lumbar spondylosis Lumbosacral spondylosis without myelopathy [facility] this [facility] Diagnosis Right lumbar radiculopathy- Primary Thoracic or lumbosacral neuritis or radiculitis, unspecified Lumbar radiculopathy Thoracic or lumbosacral neuritis or radiculitis, unspecified Lumbar spondylosis Lumbosacral spondylosis without myelopathy [facility]* Diagnosis Trochanteric bursitis of left hip Enthesopathy of hip region [facility] Diagnosis Sacroiliitis (HCC) Sacroiliitis, not elsewhere classified Lumbar spondylosis Lumbosacral spondylosis without myelopathy [facility] this [facility] Diagnosis Lumbar radiculopathy- Primary Thoracic or lumbosacral neuritis or radiculitis, unspecified Lumbar disc herniation Displacement of lumbar intervertebral disc without myelopathy [facility] this [facility]* Diagnosis Surgical menopause documented in this encounter [facility]* Diagnosis Facet arthropathy, lumbosacral- Primary Lumbosacral spondylosis without myelopathy Lumbar degenerative disc disease Degeneration of lumbar or lumbosacral intervertebral disc Lumbar spondylosis Lumbosacral spondylosis without myelopathy [facility] this [facility] Diagnosis Facet arthropathy, lumbosacral- Primary Lumbosacral spondylosis without myelopathy Lumbar degenerative disc disease Degeneration of lumbar or lumbosacral intervertebral disc Lumbar spondylosis Lumbosacral spondylosis without myelopathy [facility] Diagnosis Lumbar spondylosis- Primary Lumbosacral spondylosis without myelopathy Lumbar degenerative disc disease Degeneration of lumbar or lumbosacral intervertebral disc [facility] Diagnosis Radiculopathy of lumbar region Thoracic or lumbosacral neuritis or radiculitis, unspecified Lumbar disc herniation Displacement of lumbar intervertebral disc without myelopathy Discogenic lumbar pain Right foot drop Other acquired deformity of ankle and foot [facility] this [facility] Diagnosis Spinal stenosis of lumbar region without neurogenic claudication Spinal stenosis, lumbar region, without neurogenic claudication Radiculopathy, lumbar region Thoracic or lumbosacral neuritis or radiculitis, unspecified [facility] Diagnosis Pain in left hip Pain in joint, pelvic region and thigh [facility] Diagnosis Benign essential hypertension (CMS/HCC) Essential hypertension, benign Mixed hyperlipidemia (CMS/HCC) Mixed hyperlipidemia Gastroesophageal reflux disease without esophagitis Esophageal reflux Surgical menopause History of hysterectomy Acquired absence of both cervix and uterus documented in this encounter [facility] Healthcare[facility]ospital course Narrative No data available for this section [facility] Progress note No data available for this section [facility] Reason for referral (narrative)* Diagnostic Procedure Only (Routine) - Closed Specialty Diagnoses / Procedures Referred By Contac t Referred To Contact XR IMAGING Diagnoses Trochanteric bursitis of left hip Procedures XR HIP GENERAL 3V PELV/AP/LAT LEFT RADEX HIP UNILATERAL WITH PELVIS 2-3 VIEWS Marissa Simon APRN.[employer] [address] [place] [address] Xr Imaging Referral ID Status Reason Start Date Expiration Date V isits Requested Visits Authorized [id number] Closed Auto-Generate d Referral 02/04/2022 03/06/2023 1 1 [facility] for referral (narrative)* Diagnostic Procedure Only (Routine) - Closed Specialty Diagnoses / Procedures Referred By Contac t Referred To Contact XR IMAGING Diagnoses Trochanteric bursitis of left hip Procedures XR HIP GENERAL 3V PELV/AP/LAT LEFT RADEX HIP UNILATERAL WITH PELVIS 2-3 VIEWS Marissa Simon APRN.[employer] [address] [place] [address] Xr Imaging Referral ID Status Reason Start Date Expiration Date V isits Requested Visits Authorized [id number] Closed Auto-Generate d Referral 02/04/2022 03/06/2023 1 1 [facility] for referral (narrative)* Diagnostic Procedure Only (Routine) - Closed Specialty Diagnoses / Procedures Referred By Contac t Referred To Contact XR IMAGING Diagnoses Sacroiliitis (HCC) Lumbar spondylosis Procedures XR LUMBAR GENERAL 3V AP/LAT/L5-S1 RADEX SPINE LUMBOSACRAL 2/3 VIEWS Marissa Simon APRN.[employer] [address] [place] [address] Xr Imaging Referral ID Status Reason Start Date Expiration Date V isits Requested Visits Authorized [id number] Closed Auto-Generate d Referral 08/13/2021 09/12/2022 1 1 [facility] for visit Narrative* Auth/Cert Specialty Diagnoses / Procedures Referred By Contac t Referred To Contact [facility] Diagnoses Sacroiliitis (HCC) Lumbar spondylosis Procedures NJX DX/THER AGT PVRT FACET JT LMBR/SAC 1 LEVEL NJX DX/THER AGT PVRT FACET JT LMBR/SAC 2ND LEVEL BLOCK JOINT FACET LUMBAR W/ C-ARM BILATERAL BLOCK JOINT FACET LUMBAR EACH ADDITIONAL VERTEBRA 2 BILAT [facility] [address] [place] [address] Referral ID Status Reason Start Date Expiration Date Visits Re quested Visits Authorized [id number] 1 1 [facility] for visit Narrative* Diagnostic Procedure Only (Routine) - Closed Specialty Diagnoses / Procedures Referred By Contac t Referred To Contact XR IMAGING Diagnoses Sacroiliitis (HCC) Lumbar spondylosis Procedures XR LUMBAR GENERAL 3V AP/LAT/L5-S1 RADEX SPINE LUMBOSACRAL 2/3 VIEWS Marissa Simon APRN.HUA [address] [place] [address] Xr Imaging Referral ID Status Reason Start Date Expiration Date V isits Requested Visits Authorized [id number] Closed Auto-Generate d Referral 08/13/2021 09/12/[address] 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 Advance Directive(s) 10/16/2021 1:19 PM Advance Directive(s) 09/16/2021 1:45 PM Advance Directive(s) 09/11/2021 12:53 PM Advance Directive(s) 08/21/2021 10:00 AM Advance Directive(s) 06/19/2021 12:38 PM Advance Directive(s) 06/04/2021 2:47 PM Advance Directive(s) 03/11/2021 11:56 AM Advance Directive(s) 10/13/2020 10:28 AM Advance Directive(s) 10/13/2020 10:30 AM Advance Directive(s) 09/17/2020 2:59 PM Advance Directive(s) 01/09/2018 11:06 AM Documents on File Type Date Recorded 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 Advance Directive(s) 10/21/2021 12:29 PM Advance Directive(s) 10/21/2021 12:36 PM Advance Directive(s) 10/16/2021 1:19 PM Advance Directive(s) 09/16/2021 1:45 PM Advance Directive(s) 09/11/2021 12:53 PM Advance Directive(s) 08/21/2021 10:00 AM Advance Directive(s) 06/19/2021 12:38 PM Advance Directive(s) 06/04/2021 2:47 PM Advance Directive(s) 03/11/2021 11:56 AM Advance Directive(s) 10/13/2020 10:28 AM Advance Directive(s) 10/13/2020 10:30 AM Advance Directive(s) 09/17/2020 2:59 PM Advance Directive(s) 01/09/2018 11:06 AM Documents on File Type Date Recorded 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 Advance Directive(s) 12/23/2021 8:04 AM Advance Directive(s) 11/23/2021 2:45 PM Advance Directive(s) 11/09/2021 8:30 AM Advance Directive(s) 10/21/2021 12:29 PM Advance Directive(s) 10/21/2021 12:36 PM Advance Directive(s) 10/16/2021 1:19 PM Advance Directive(s) 09/16/2021 1:45 PM Advance Directive(s) 09/11/2021 12:53 PM Advance Directive(s) 08/21/2021 10:00 AM Advance Directive(s) 06/19/2021 12:38 PM Advance Directive(s) 06/04/2021 2:47 PM Advance Directive(s) 03/11/2021 11:56 AM Advance Directive(s) 10/13/2020 10:28 AM Advance Directive(s) 10/13/2020 10:30 AM Advance Directive(s) 09/17/2020 2:59 PM Advance Directive(s) 01/09/2018 11:06 AM Documents on File Type Date Recorded 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 Advance Directive(s) 12/23/2021 8:04 AM Advance Directive(s) 11/23/2021 2:45 PM Advance Directive(s) 11/09/2021 8:30 AM Advance Directive(s) 10/21/2021 12:29 PM Advance Directive(s) 10/21/2021 12:36 PM Advance Directive(s) 10/16/2021 1:19 PM Advance Directive(s) 09/16/2021 1:45 PM Advance Directive(s) 09/11/2021 12:53 PM Advance Directive(s) 08/21/2021 10:00 AM Advance Directive(s) 06/19/2021 12:38 PM Advance Directive(s) 06/04/2021 2:47 PM Advance Directive(s) 03/11/2021 11:56 AM Advance Directive(s) 10/13/2020 10:28 AM Advance Directive(s) 10/13/2020 10:30 AM Advance Directive(s) 09/17/2020 2:59 PM Advance Directive(s) 01/09/2018 11:06 AM Summary Purpose Family History No Family History Records FoundNo Family History Records FoundNo Family History Records FoundNo Family History Records FoundNo Family History Records FoundNo Family History Records Found Reason for Referral Specialty Diagnoses / Procedures Referred By Contac t Referred To Contact MR IMAGING Diagnoses Radiculopathy of lumbar region Lumbar disc herniation Discogenic lumbar pain Right foot drop Procedures MRI LUMBAR SPINE WO IVCON MRI SPINAL CANAL LUMBAR W/O CONTRAST MATERIAL Marissa Simon APRN.[employer] [address] [place] [address] Mr Imaging Referral ID Status Reason Start Date Expiration Date Visits Requested Visits Authorized [id number] Authorized Auto-Generat ed Referral 11/17/2022 12/17/2023 1 1 Specialty Diagnoses / Procedures Referred By Contac t Referred To Contact Diagnoses Left hip pain Radiculopathy of lumbar region Marissa Simon APRN.[employer] [address] [place] [address] Referral ID Status Reason Start Date Expiration Date Visits Re quested Visits Authorized [id number] Closed 1 1 Additional Source Comments Source Comments (unrecognize d section and content) In the event this informatio n is protected by the Federal Confidentiality of Alcohol and Drug Abuse Patient Records regulations: The Federal rules restrict any use of the information to criminally investigate or prosecute any alcohol or drug abuse patient.[facility] event this information is protected by the Federal Confidentiality of Alcohol and Drug Abuse Patient Records regulations: The Federal rules restrict any use of the information to criminally investigate or prosecute any alcohol or drug abuse patient.[facility] the event this information is protected by the Federal Confidentiality of Alcohol and Drug Abuse Patient Records regulations: The Federal rules restrict any use of the information to criminally investigate or prosecute any alcohol or drug abuse patient.[facility] the event this information is protected by the Federal Confidentiality of Alcohol and Drug Abuse Patient Records regulations: The Federal rules restrict any use of the information to criminally investigate or prosecute any alcohol or drug abuse patient.[facility] the event this information is protected by the Federal Confidentiality of Alcohol and Drug Abuse Patient Records regulations: The Federal rules restrict any use of the information to criminally investigate or prosecute any alcohol or drug abuse patient.[facility] the event this information is protected by the Federal Confidentiality of Alcohol and Drug Abuse Patient Records regulations: The Federal rules restrict any use of the information to criminally investigate or prosecute any alcohol or drug abuse patient.[facility] the event this information is protected by the Federal Confidentiality of Alcohol and Drug Abuse Patient Records regulations: The Federal rules restrict any use of the information to criminally investigate or prosecute any alcohol or drug abuse patient.[facility] the event this information is protected by the Federal Confidentiality of Alcohol and Drug Abuse Patient Records regulations: The Federal rules restrict any use of the information to criminally investigate or prosecute any alcohol or drug abuse patient.[facility] the event this information is protected by the Federal Confidentiality of Alcohol and Drug Abuse Patient Records regulations: The Federal rules restrict any use of the information to criminally investigate or prosecute any alcohol or drug abuse patient.[facility] the event this information is protected by the Federal Confidentiality of Alcohol and Drug Abuse Patient Records regulations: The Federal rules restrict any use of the information to criminally investigate or prosecute any alcohol or drug abuse patient.[facility] the event this information is protected by the Federal Confidentiality of Alcohol and Drug Abuse Patient Records regulations: The Federal rules restrict any use of the information to criminally investigate or prosecute any alcohol or drug abuse patient.[facility] the event this information is protected by the Federal Confidentiality of Alcohol and Drug Abuse Patient Records regulations: The Federal rules restrict any use of the information to criminally investigate or prosecute any alcohol or drug abuse patient.[facility] the event this information is protected by the Federal Confidentiality of Alcohol and Drug Abuse Patient Records regulations: The Federal rules restrict any use of the information to criminally investigate or prosecute any alcohol or drug abuse patient.[facility] the event this information is protected by the Federal Confidentiality of Alcohol and Drug Abuse Patient Records regulations: The Federal rules restrict any use of the information to criminally investigate or prosecute any alcohol or drug abuse patient.[facility] the event this information is protected by the Federal Confidentiality of Alcohol and Drug Abuse Patient Records regulations: The Federal rules restrict any use of the information to criminally investigate or prosecute any alcohol or drug abuse patient.[facility] the event this information is protected by the Federal Confidentiality of Alcohol and Drug Abuse Patient Records regulations: The Federal rules restrict any use of the information to criminally investigate or prosecute any alcohol or drug abuse patient.[facility] the event this information is protected by the Federal Confidentiality of Alcohol and Drug Abuse Patient Records regulations: The Federal rules restrict any use of the information to criminally investigate or prosecute any alcohol or drug abuse patient.[facility] the event this information is protected by the Federal Confidentiality of Alcohol and Drug Abuse Patient Records regulations: The Federal rules restrict any use of the information to criminally investigate or prosecute any alcohol or drug abuse patient.[facility] the event this information is protected by the Federal Confidentiality of Alcohol and Drug Abuse Patient Records regulations: The Federal rules restrict any use of the information to criminally investigate or prosecute any alcohol or drug abuse patient.[facility] the event this information is protected by the Federal Confidentiality of Alcohol and Drug Abuse Patient Records regulations: The Federal rules restrict any use of the information to criminally investigate or prosecute any alcohol or drug abuse patient.[facility] the event this information is protected by the Federal Confidentiality of Alcohol and Drug Abuse Patient Records regulations: The Federal rules restrict any use of the information to criminally investigate or prosecute any alcohol or drug abuse patient.[facility] the event this information is protected by the Federal Confidentiality of Alcohol and Drug Abuse Patient Records regulations: The Federal rules restrict any use of the information to criminally investigate or prosecute any alcohol or drug abuse patient.[facility] the event this information is protected by the Federal Confidentiality of Alcohol and Drug Abuse Patient Records regulations: The Federal rules restrict any use of the information to criminally investigate or prosecute any alcohol or drug abuse patient.[facility] the event this information is protected by the Federal Confidentiality of Alcohol and Drug Abuse Patient Records regulations: The Federal rules restrict any use of the information to criminally investigate or prosecute any alcohol or drug abuse patient.[facility] the event this information is protected by the Federal Confidentiality of Alcohol and Drug Abuse Patient Records regulations: The Federal rules restrict any use of the information to criminally investigate or prosecute any alcohol or drug abuse patient.[facility] PRN Active and Recently Administ ered Medications (unrecognized section and content) Medication Order 10/14/2021 10/15/2021 10/16/2021 bupivacaine (PF) 0.5 % (5 mg/mL) injection (CANCELED) X (OR/PROCEDURE) PRN, Starting on 10/16/21 at 1429, Until Tue10/16/21 at 1441, Intraprocedure 1429 (Given - Provid er: Lyndsey Finn MD) triamcinolone acetonide injection (KENALOG 40) (CANCELED) X (OR/PROCEDURE) PRN, Starting on Tue10/16/21 at 1429, Until 10/16/21 at 1441, Intraprocedure 1429 (Given - Provid er: Lyndsey Finn MD) Care Teams (unrecognized sec tion and content) Associate Professor Of Theology Relationship Specialty Start Date End Date TeresaAlbin [address] [place] [address] PCP - General Family Practice 09/03/13 Associate Professor Of Theology Relationship Specialty Start Date End Date Albin Moore [address] [place] [address] (Fax) PCP - General Family Practice 09/03/13 Associate Professor Of Theology Relationship Specialty Start Date End Date Albin Moore MD [address] [place] [address] (Fax) PCP - General Family Practice 09/03/13 Associate Professor Of Theology Relationship Specialty Start Date End Date Albin Moore MD [address] [facility] [place] [address] (Fax) PCP - General Family Practice 09/03/13 Associate Professor Of Theology Relationship Specialty Start Date End Date Albin Moore MD [address] [facility] [place] [address] (Fax) PCP - General Family Practice 09/03/13 Associate Professor Of Theology Relationship Specialty Start Date End Date Albin Moore MD [address] [place] [address] (Fax) PCP - General Family Medicine 09/03/13 Associate Professor Of Theology Relationship Specialty Start Date End Date Albin Moore MD [address] [facility] [place] [address] (Fax) PCP - General Family Medicine 09/03/13 Associate Professor Of Theology Relationship Specialty Start Date End Date Albin Moore MD [address] [facility] [place] [address] (Fax) PCP - General Family Medicine 09/03/13 Associate Professor Of Theology Relationship Specialty Start Date End Date Albin Moore MD [address] [facility] [place] [address] (Fax) PCP - General Family Medicine 09/03/13 Associate Professor Of Theology Relationship Specialty Start Date End Date Albin Moore MD [address] [place] [address] (Fax) PCP - General Family Medicine 09/03/13 Associate Professor Of Theology Relationship Specialty Start Date End Date Albin Moore MD [address] [place] [address] (Fax) PCP - General Family Medicine 09/03/13 Associate Professor Of Theology Relationship Specialty Start Date End Date Albin Moore MD [address] [place] [address] (Fax) PCP - General Family Medicine 09/03/13 Associate Professor Of Theology Relationship Specialty Start Date End Date Albin Moore MD [address] [place] [address] (Fax) PCP - General Family Medicine 09/03/13 Associate Professor Of Theology Relationship Specialty Start Date End Date Albin Moore MD [address] [place] [address] (Fax) PCP - General 12/21/22 Associate Professor Of Theology Relationship Specialty Start Date End Date Albin Moore MD [address] [place] [address] (Fax) PCP - General Family Medicine 09/03/13 Associate Professor Of Theology Relationship Specialty Start Date End Date Albin Moore MD [address] [place] [place] [address] (Fax) PCP - General Family Medicine 09/03/13 Associate Professor Of Theology Relationship Specialty Start Date End Date Albin Moore MD [address] [place] [address] (Fax) PCP - General Family Medicine 09/03/13 Associate Professor Of Theology Relationship Specialty Start Date End Date Albin Moore MD [address] [place] [address] (Fax) PCP - General Family Medicine 09/03/13 Associate Professor Of Theology Relationship Specialty Start Date End Date Albin Moore MD [address] [place] [address] (Fax) PCP - General Family Medicine 09/03/13 Associate Professor Of Theology Relationship Specialty Start Date End Date Albin Moore MD [address] [place] [address] (Fax) PCP - General Family Medicine 09/03/13 Associate Professor Of Theology Relationship Specialty Start Date End Date Albin Moore MD [address] [place] [address] (Fax) PCP - General Family Medicine 09/03/13 Associate Professor Of Theology Relationship Specialty Start Date End Date Albin Moore MD [address] [place] [place] [address] (Fax) PCP - General Family Medicine 09/03/13 Associate Professor Of Theology Relationship Specialty Start Date End Date Albin Moore MD [address] [place] [phone] (Fax) PCP - General 12/21/22 Associate Professor Of Theology Relationship Specialty Start Date End Date Albin Moore MD [address] [place] [address] PCP - General 12/21/22 Associate Professor Of Theology Relationship Specialty Start Date End Date Albin Moore MD [address] [place] [address] PCP - General 12/21/22 Reason for Visit (unrecogniz ed section and content) Reason Comments Post Op Reason Comments pain procedure response & follow up LEFT L4-L5 and L5-S1 facet medial branch nerve radiofrequency ablation # 1 Reason Comments Follow Up Reason Comments Results Reason Comments Recheck Reason Comments Schedule Injection Reason Comments Recheck Review MRI Lumbar Reason Comments Injection Followup Reason Comments Radiology XR Specialty Diagnoses / Procedures Referred By Contac t Referred To Contact XR IMAGING Diagnoses Trochanteric bursitis of left hip Procedures XR HIP GENERAL 3V PELV/AP/LAT LEFT RADEX HIP UNILATERAL WITH PELVIS 2-3 VIEWS Marissa Simon [employer]PORATE [employer]CIAL [employer]NALY[employer] [address] [place] [address] Xr Imaging Referral ID Status Reason Start Date Expiration Date V isits Requested Visits Authorized [id number] Closed Auto-Generate d Referral 02/04/2022 03/06/2023 1 1 Reason Comments Recheck Reason Comments Med Change Request Reason Comments Recheck Post procedure Specialty Diagnoses / Procedures Referred By Contac t Referred To Contact MR IMAGING Diagnoses Radiculopathy of lumbar region Lumbar disc herniation Discogenic lumbar pain Right foot drop Procedures MRI LUMBAR SPINE WO IVCON MRI SPINAL CANAL LUMBAR W/O CONTRAST MATERIAL Marissa Simon, CORPORATE FINANCIAL ANALYST.[employer] [address] [place] [address] [place] [address] Referral ID Status Reason Start Date Expiration Date V isits Requested Visits Authorized [id number] Closed Auto-Generate d Referral 11/17/2022 12/17/2023 1 1 Reason Comments Radiology MRI Reason Comments Radiology XR Reason Comments post pain procedure BILATERAL L4-L5 and L5-S1 facet medial branch nerve radiofrequency ablation # 1 under fluoroscopic guidance. INFORMATION SOURCE (unrecogn ized section and content) DATE CREATED AUTHOR 07/08/[address] [facility] DATE CREATED AUTHOR AUTHOR'S ORGANIZ ATION 10/20/2023 [facility] DATE CREATED AUTHOR AUTHOR'S ORGANIZ ATION 11/23/2023 [facility] DATE CREATED AUTHOR AUTHOR'S ORGANIZ ATION 02/04/2024 [facility] DATE CREATED AUTHOR AUTHOR'S ORGANIZ ATION 06/21/2024 [facility] DATE CREATED AUTHOR AUTHOR'S ORGANIZ ATION 07/08/2024 [facility] FOR RECORDS PERTAINING TO PATIENTS WHO ARE OR HAVE BEEN ENROLLED IN A CHEMICAL DEPENDENCY/SUBSTANCEABUSE PROGRAM, SOME INFORMATION MAY BE OMITTED. This clinical summary was aggregated from multiple sources. Caution should be exercised in using it in the provision of clinical care. This summary normalizes information from multiple sources, and as a consequence, information in this document may materially change the coding, format and clinical context of patient data. In addition, data may be omitted in some cases. CLINICAL DECISIONS SHOULD BE BASED ON THE PRIMARY CLINICAL RECORDS. [facility] [employer] [facility]. provides no warranty or guarantee of the accuracy or completeness of information in this document.
== END 2024-07-12 09:20 | disposition home or self-care (01) ==
LOC: MAMMO 09:19
PROVIDERS: PCP Family Medicine; Visit Provider Family Medicine
DX: Z12.31 Encounter for screening mammogram for malignant neoplasm of breast (principal); Z80.3 Family history of malignant neoplasm of breast; Z80.8 Family history of malignant neoplasm of other organs or systems
CPT/HCPCS: 77063; 77067